=== PATIENT | female | born 1985 | race Caucasian/White ===

== ENCOUNTER 2021-02-13 09:31 | Outpatient (CLI) | payer BC, SELFPAY ==
--- NOTE | 2021-02-13 09:39 | US_ITS ---
WS: [id number] RENAL ULTRASOUND HISTORY: HEMATURIA COMPARISON: None available. TECHNIQUE: 2-D and color Doppler imaging of the kidney submitted. Right kidney: 13.0 cm x 4.9 cm x 4.9 cm. Normal echogenicity with no hydronephrosis or mass. Left kidney: 12.1 cm x 5.3 cm x 4.0 cm. Normal echogenicity with no hydronephrosis or mass. Aorta: Normal. Urinary Bladder: Normal distention. US/US renal BI* [id number] IMPRESSION: Normal renal ultrasound.
== END 2021-02-13 09:32 | disposition home or self-care (01) ==
LOC: US 09:35
PROVIDERS: PCP Nurse Practitioner Family; Visit Provider Nurse Practitioner Family
DX: R31.9 Hematuria, unspecified (principal); R30.0 Dysuria
CPT/HCPCS: 76770

== ENCOUNTER → 2021-02-24 09:03 | Outpatient (BNVA) | payer BC, SELFPAY | PROVIDERS: PCP Nurse Practitioner Family; Referring Provider Nurse Practitioner Family; Visit Provider Nurse Practitioner Family | DX: R31.0 Gross hematuria (principal) | CPT/HCPCS: 81003 ==

== ENCOUNTER 2021-03-04 08:12 | Outpatient (CLI) | payer BC, SELFPAY ==
[2021-03-04] MEDS: iohexol 300 mg/mL 100 mL Btl IV (08:57)
--- NOTE | 2021-03-04 09:30 | CT_ITS ---
WS: [id number] CT ABDOMEN AND PELVIS WITH AND WITHOUT CONTRAST HISTORY: GROSS HEMATURIA TECHNIQUE: Unenhanced 5 mm axial imaging first performed through the abdomen. Post contrast imaging t hrough the abdomen and pelvis. Oral contrast has not been provided. Sagittal and coronal reformats a re submitted. All CT scans at [facility] use at least one of these dose optimization tech niques: automated exposure control; mA and/or kV adjustment per patient size (includes targeted exams where dose is matched to clinical indication); or iterative reconstruction. CONTRAST: Omnipaque 300; 95 mL IV. DLP: 5031.16 mGy.cm COMPARISON: None available. Lung bases are clear. Normal size heart. Small hiatal hernia. Mild hepatic steatosis. Otherwise negative. No bile duct dilatation. Prior cholecystectomy. Normal sp emelyn and pancreas. Normal adrenal glands and aorta. RIGHT kidney: Normal size with no calcification or obstruction or mass. Ureter is normal. No uroepith elial lesions. LEFT kidney: Normal size with no calcifications, obstruction or mass. No uroepithelial lesions. Normal GI tract. Normal appendix. No free fluid or adenopathy. Uterus is normal size and anteverted. Small bilateral ovarian follicles. No destructive bone lesions. CT/CT abdomen pelvis wo/w [id number] IMPRESSION: 1. Normal CT kidneys. No mass or calcification or obstruction. 2. Normal appendix. 3. Prior cholecystectomy.
== END 2021-03-04 08:13 | disposition home or self-care (01) ==
LOC: CT 08:15
PROVIDERS: PCP Nurse Practitioner Family; Visit Provider Nurse Practitioner Family
DX: R31.0 Gross hematuria (principal); Z90.49 Acquired absence of other specified parts of digestive tract; R31.9 Hematuria, unspecified
CPT/HCPCS: 74178; 87086; 88112

== ENCOUNTER → 2021-03-13 10:19 | Outpatient (BNVA) | payer BC, SELFPAY | PROVIDERS: PCP Nurse Practitioner Family; Visit Provider Urology | DX: R31.0 Gross hematuria (principal) | CPT/HCPCS: 81003 ==

== ENCOUNTER → 2021-04-27 08:17 | Outpatient (BNVA) | payer BC, SELFPAY | PROVIDERS: PCP Nurse Practitioner Family; Visit Provider Obstetrics & Gynecology | DX: R93.89 Abnormal findings on diagnostic imaging of other specified body structures (principal); R10.814 Left lower quadrant abdominal tenderness; N91.2 Amenorrhea, unspecified | CPT/HCPCS: 76830 ==

== ENCOUNTER → 2021-05-08 11:40 | Outpatient (BNVA) | payer BC, SELFPAY | PROVIDERS: PCP Nurse Practitioner Family; Visit Provider Nurse Practitioner Family | DX: Z20.822 Contact with and (suspected) exposure to COVID-19 (principal); J06.9 Acute upper respiratory infection, unspecified | CPT/HCPCS: 87426 ==

== ENCOUNTER 2021-05-10 19:10 | Emergency (ER) | payer BC, SELFPAY ==
[2021-05-10 20:00] VITALS: BP 138/93; PULSE 85; RESP 18; TEMP 37.5; O2SAT 94; BMI 43.8
--- NOTE | 2021-05-10 20:03 | ECG_ITS ---
[facility] Test Date: 2021-05-10 Pat Name: Amalia Bates Department: Room: Gender: Female Family Resource Coordinator: : 1985 Requested By: Lonny Ledezma Order Number: [id number] Alan MD: THELMA HULL Measurements Intervals [place] Rate: 95 P: 0 [place]: 144 QRS: -13 QRSD: 86 T: 6 QT: 331 QTc: 417 Interpretive Statements SINUS RHYTHM POSSIBLE LEFT ATRIAL ENLARGEMENT [-0.1mV P WAVE IN V1/V2] No previous ECG available for comparison Electronically Signed On 05-11-2021 23:34:46 CDT by THELMA HULL [email or web address]/[id number] f
--- NOTE | 2021-05-10 20:03 | ED_ITS ---
HPI - COVID General: Chief Complaint: COVID symptoms Stated Complaint: CHEST PAINS COVID + Time Seen by Provider: 05/10/21 20:03 Triage information: Has fever, cough or shortness of breath . Exposure to COVID + person last 14 days History of Present Illness: HPI Narrative: 36-year-old female comes in today with complaints of palpitations and one syncopal episode. Patient reports this morning she became faint and passed out. Patient said since coming to though she has felt well most of the day and without any further problems. Patient reports that her mother's been having her drink more water and Pedialyte. Patient appears well at this time. Patient appears no acute distress. Patient tested positive for Covid 19 on May 08, 2021. COVID Results: SARS-CoV-2 Antigen (Rapid) Positive (Negative) H 05/08/21 11:40 05/08/21 Review of Systems General: Reports: 10 or more systems reviewed and unremarkable except in HPI and below Card: Reports: palpitations and syncope [facility] ED PFSH: Medical History No pertinent past medical history Denies diabetes, asthma, hypertension, seizures, DVT/PE PCP: KELLY Pearl PCOS (polycystic ovarian syndrome) Diagnosed at the age of 20 with irregular cycles and hirsutism. Surgical History History of cholecystectomy 2004---laparoscopic procedure. Status post laparoscopy 2009--diagnostic laparoscopy performed by Dr. Dyer for infertility-Per patient everything was normal--no endometriosis---she did say that there was scar tissue around gallbladder surgery site. Family History Father Hypertension Thyroid cancer Grandmother Stroke paternal Heart disease maternal Grandfather Heart disease maternal Diabetes paternal Family/Other Breast cancer paternal aunt x 3, diagnosed in their 50s paternal cousin, diagnosed in her 30s Diabetes paternal aunt, paternal uncle Uterine cancer paternal cousin, diagnosed at age 37 Denies family history of Colon cancer Ovarian cancer Hyperlipidemia Thyroid condition Social History Smoking and tobacco status: never smoked Alcohol intake: never Marital status: Current occupational status: employed History of recent travel: No Physical Exam Const: COMMON NORMALS: no acute distress and patient oriented x3 GENERAL APPEARANCE: cooperative HENMT: COMMON NORMALS: normocephalic, TM's normal bilaterally and Normal external nose present HEAD & SCALP: normal to inspection and normocephalic NOSE: Normal external nose present TYMPANIC MEMBRANE: TM's normal bilaterally MOUTH: Normal oral and palatal mucosa present THROAT: posterior oropharynx normal Eye: GENERAL EYE: appearance normal, both eyes and all related structures Neck/C-Spine: COMMON NORMALS: full ROM Lymph: LYMPHATIC: no lymphadenopathy noted Chest: COMMONS NORMALS: normal inspection of the chest Resp: COMMON NORMALS: normal respiratory effort EFFORT & INSPECTION: Yes able to speak in complete sentences Cardio: COMMON NORMALS: regular rate and regular rhythm RATE: regular rate RHYTHM: regular rhythm GI: COMMON NORMALS: non-tender : COMMON NORMALS: Yes no CVA tenderness BLADDER/KIDNEY EXAM: Yes no CVA tenderness Back/Pelvis: COMMON NORMALS: no CVA tenderness and thoracic and lumbar spine normal to inspection Extremity: COMMON NORMALS: normal to inspection Neuro: COMMON NORMALS: patient oriented x3 and moves all extremities Psych: COMMON NORMALS: mental status grossly normal and cooperative Skin: COMMON NORMALS: no rashes or lesions noted GENERAL SKIN EXAM: no rashes or lesions noted Course Vital Signs: Vital signs: Vital Signs Temperature 99.5 F 05/10/21 20:00 Pulse Rate 85 05/10/21 20:00 Respiratory Rate 18 05/10/21 20:00 Blood Pressure 138/93 05/10/21 20:00 Pulse Oximetry 97 05/10/21 21:02 MDM - COVID MDM Narrative: Medical decision making narrative: Patient came in tonight with complaints of heart palpitations and lightheadedness. Patient reported the episode this morning where she thinks she might of passed out as she felt palpitations and then got really lightheaded and sat down and the next thing she knows she woke back up with her father waking her up. On exam respirations are even lungs are clear to auscultation. Skin is warm and dry. Vital signs are normal. Differential diagnosis includes PVCs, syncopal episode, COVID-19. Patient does have a diagnosis of COVID-19. CBC noted some mild leukopenia, CMP had a sodium 134, CRP was 11, D-dimer was negative and troponin was negative. EKG showed some sinus rhythm. Reviewed exam with patient with recommendations for treatment and follow-up. Patient reported understanding and agreed to plan. Lab Data: Labs: Lab Results 05/10/21 05/10/21 05/10/21 Range/Units 21:10 21:10 21:10 WBC Cancelled Corrected WBC Cancelled RBC Cancelled Hgb Cancelled Hct Cancelled MCV Cancelled MCH Cancelled MCHC Cancelled RDW Cancelled Plt Count Cancelled MPV Cancelled Gran % Cancelled Neut % (Auto) Cancelled Lymph % (Auto) Cancelled Hawkins % (Auto) Cancelled Eos % (Auto) Cancelled Baso % (Auto) Cancelled Neut # (Auto) Cancelled Lymph # (Auto) Cancelled Hawkins # (Auto) Cancelled Eos # (Auto) Cancelled Baso # (Auto) Cancelled Absolute Gran (aut o) Cancelled Nucleated RBC % (a uto) Cancelled Nucleated RBCs # Cancelled D-Dimer 0.52 (0-0.59) ug/mIFE U Sodium 134 L (136-145) mmol/L Potassium 4.2 (3.5-5.1) mmol/L Chloride 100 (98-107) mmol/L Carbon Dioxide 20 L (22-29) mmol/L Anion Gap 18.2 (5-19) BUN 9 (6-20) mg/dL Creatinine 0.9 (0.5-0.9) mg/dL GFR Calculation 71.3 L (90-130) mL/min Glucose 104 (65-115) mg/dL Calculated Osmolal ity 277 L (285-295) mOsm/k g Calcium 8.4 L (8.5-10.5) mg/dL Total Bilirubin 0.3 (0.15-1.2) mg/dL AST 28 (0-32) U/L ALT 28 (0-33) U/L Alkaline Phosphata se 55 (35-105) IU/L Creatine Kinase 93 (26-192) U/L Troponin T Gen 5 n g/L (0-10) ng/L C-Reactive Protein 11.9 H (0.0-4.9) mg/L Total Protein 6.2 L (6.6-8.7) g/dL Albumin 3.9 (3.5-5.2) g/dL Globulin 2.3 (1.3-4.6) g/dL HCG, Qual (Negative) 05/10/21 05/10/21 05/10/21 Range/Units 21:10 21:10 21:47 WBC 3.7 L Corrected WBC RBC 5.01 Hgb 14.8 Hct 45.5 MCV 90.8 MCH 29.5 MCHC 32.5 RDW 13.1 Plt Count 137 MPV 10.7 H Gran % Neut % (Auto) 71.6 Lymph % (Auto) 17.7 Hawkins % (Auto) 10.4 Eos % (Auto) 0.0 Baso % (Auto) 0.0 Neut # (Auto) 2.63 Lymph # (Auto) 0.7 L Hawkins # (Auto) 0.4 Eos # (Auto) 0.0 Baso # (Auto) 0.0 Absolute Gran (aut o) Nucleated RBC % (a uto) 0 Nucleated RBCs # 0.0 D-Dimer (0-0.59) ug/mIFE U Sodium (136-145) mmol/L Potassium (3.5-5.1) mmol/L Chloride (98-107) mmol/L Carbon Dioxide (22-29) mmol/L Anion Gap (5-19) BUN (6-20) mg/dL Creatinine (0.5-0.9) mg/dL GFR Calculation (90-130) mL/min Glucose (65-115) mg/dL Calculated Osmolal ity (285-295) mOsm/k g Calcium (8.5-10.5) mg/dL Total Bilirubin (0.15-1.2) mg/dL AST (0-32) U/L ALT (0-33) U/L Alkaline Phosphata se (35-105) IU/L Creatine Kinase (26-192) U/L Troponin T Gen 5 n g/L 6 (0-10) ng/L C-Reactive Protein (0.0-4.9) mg/L Total Protein (6.6-8.7) g/dL Albumin (3.5-5.2) g/dL Globulin (1.3-4.6) g/dL HCG, Qual Negative (Negative) EKG Data: EKG 1: Attestation: I personally reviewed and interpreted this EKG as follows: (EKG shows regular sinus rhythm with rate of 95 bpm, no ST elevation or ectopy is noted. Computer reads possible left atrial enlargement. No prior exam is available at this time for comparison.) COVID Results: SARS-CoV-2 Antigen (Rapid) Positive (Negative) H 05/08/21 11:40 05/08/21 Discharge Plan Discharge Patient Disposition: Home Clinical Impression: COVID-19, Heart palpitations Condition: Stable Prescriptions: No Action No Known Home Medications RF: 0 Discharge Orders: Discharge ED (Routine); Ordered 05/10/21 Ordered By: Lonny Dean Referrals: Kelly Killian FNP [Primary Care Provider] - Discharge Diet: Usual diet Discharge Activity: Increase activity as tolerated Patient Instructions: Viral Syndrome (ED), Opioid Safety Activity Restrictions/Additional Instructions: Continue with routine care. Drink plenty of fluids. Healthy diet and exercise. Avoid strenuous activity. Take your time changing position. Follow-up with primary care for further instruction. Return to the ER for worsening symptoms or new concerns. Coding Level of Care Code ED Regasification Plant Operator for Jannet Kaplan Exam Comprehensive
--- NOTE | 2021-05-10 20:03 | XRR_ITS ---
PROCEDURE INFORMATION: Exam: XR Chest Exam date and time: 05/10/2021 8:03 PM Age: 36 years old Clinical indication: Sternal or substernal pain; Additional info: Chest pain TECHNIQUE: Imaging protocol: XR of the chest. Views: 1 view. COMPARISON: CT abdomen pelvis wo/w [id number] 03/04/2021 8:50 AM FINDINGS: Lungs: No consolidation. Pleural spaces: No pleural effusion. No pneumothorax. Heart/Mediastinum: No cardiomegaly. Bones/joints: Unremarkable. XR/XR chest 1V portable [id number] IMPRESSION: No acute abnormality demonstrated.
[2021-05-10 21:02] VITALS: BP 130/94; PULSE 87; RESP 20; O2SAT 94; O2SAT 97
[2021-05-10 21:38] LABS: HCG, Serum Qual Negative (Negative)
[2021-05-10 21:50] LABS: Troponin T (5th) Once 6 ng/L (0-10)
[2021-05-10 21:51] LABS: Alanine Aminotransferase 28 U/L (0-33); Albumin Level 3.9 g/dL (3.5-5.2); Alkaline Phosphatase 55 IU/L (35-105); Aspartate Amino Transferase 28 U/L (0-32); Blood Urea Nitrogen 9 mg/dL (6-20); C Reactive Protein 11.9 mg/L (0.0-4.9); Calcium 8.4 mg/dL (8.5-10.5); Carbon Dioxide 20 mmol/L (22-29); Chloride 100 mmol/L (98-107); Creatine Phosphokinase 93 U/L (26-192); Globulin 2.3 g/dL (1.3-4.6); Glomerular Filtration Rate 71.3 mL/min (90-130); Glucose 104 mg/dL (65-115); Osmolality Calculated 277 mOsm/kg (285-295); Sodium 134 mmol/L (136-145); Total Bilirubin 0.3 mg/dL (0.15-1.2); Total Protein 6.2 g/dL (6.6-8.7)
[2021-05-10 21:54] LABS: Anion Gap 18.2 (5-19); Potassium 4.2 mmol/L (3.5-5.1)
[2021-05-10 21:55] LABS: D Dimer 0.52 ug/mIFEU (0-0.59)
[2021-05-10 22:02] VITALS: BP 133/94; PULSE 82; RESP 18; O2SAT 94
[2021-05-10 22:03] LABS: Hematocrit 45.5 % (37.0-47.0); Hemoglobin 14.8 g/dL (11.5-15.3); Lymphocytes # 0.7 10^3/uL (0.8-4.8); Lymphocytes % 17.7 %; Mean Corpuscular HGB Conc 32.5 g/dL (30.0-36.0); Mean Corpuscular Hemoglobin 29.5 pg (28.0-34.0); Mean Corpuscular Volume 90.8 fL (81-99); Mean Platelet Volume 10.7 fL (7.4-10.4); Monocytes # 0.4 10^3/uL (0.2-0.9); Monocytes % 10.4 %; Neutrophils # 2.63 10^3/uL (1.8-7.7); Neutrophils % 71.6 %; Nucleated Red Blood Cells % 0 %; Platelet Count 137 10^3/cmm (130-400); Red Blood Count 5.01 10^6/uL (4.1-5.3); Red Cell Distribution Width 13.1 % (12.1-15.1); White Blood Count 3.7 10^3/uL (4.0-10.0)
[2021-05-10 23:32] VITALS: BP 138/93; PULSE 85; RESP 18; O2SAT 94
== END 2021-05-10 23:15 | disposition home or self-care (01) ==
PROVIDERS: Emergency Provider Nurse Practitioner Family; PCP Nurse Practitioner Family
DX: U07.1 COVID-19 (principal); R00.2 Palpitations
CPT/HCPCS: 36415; 71045; 80053; 82550; 84484; 84703; 85025; 85378; 86140; 93005; 99283

== ENCOUNTER 2021-05-13 22:41 | Emergency (ER) | payer BC, SELFPAY ==
--- NOTE | 2021-05-13 22:47 | XRR_ITS ---
PROCEDURE INFORMATION: Exam: XR Chest Exam date and time: 05/13/2021 10:47 PM Age: 36 years old Clinical indication: Shortness of breath; Prior surgery; Surgery type: Gb; Patient HX: Sob/hypoxia. Covid + TECHNIQUE: Imaging protocol: XR of the chest. Views: 1 view. COMPARISON: CR (CHEST, ) 05/10/2021 8:20 PM FINDINGS: Lungs: Mild bilateral interstitial opacities, compatible with viral infection. Pleural spaces: Unremarkable. No pleural effusion. No pneumothorax. Heart/Mediastinum: Unremarkable. No cardiomegaly. Bones/joints: No acute fracture. XR/XR chest 1V portable [id number] IMPRESSION: Mild bilateral interstitial opacities, compatible with viral infection.
[2021-05-13 22:51] VITALS: BP 113/76; PULSE 101; RESP 20; TEMP 37.8; O2SAT 84; BMI 43.8
[2021-05-13 22:54] VITALS: O2SAT 84
--- NOTE | 2021-05-13 23:07 | ED_ITS ---
HPI - COVID General: Chief Complaint: COVID symptoms Stated Complaint: sob, covid positive Time Seen by Provider: 05/13/21 22:48 Source: patient Mode of arrival: ambulatory Limitations: no limitations Triage information: Has fever, cough or shortness of breath . Exposure to COVID + person last 14 days History of Present Illness: HPI Narrative: Patient is a nice 36-year-old female who presents to ED today with complaints of low O2 saturations. She is on day 7 of COVID symptoms. She had a positive COVID test on 05/08. Patient was seen in our facility a few days ago for complaints of heart palpitations. She was subsequently discharged home. Patient tells me she did begin feeling better up until today when she began feeling short of breath. Home pulse ox read patient saturating at anywhere from 85 to 88% on room air. complaint: known COVID positive Prior covid testing: yes, results known Prior testing date: 05/08/21 COVID 19 common symptoms: positive dyspnea, fatigue and body aches; negative fever(s) (pt had low grade fever upon arrival), chills, non-productive cough, productive cough, headache(s), nausea, vomiting or diarrhea COVID 19 other sytmptoms: negative chest pain Onset (ago): hour(s) Severity: moderate COVID Results: SARS-CoV-2 Antigen (Rapid) Positive (Negative) H 05/08/21 11:40 05/08/21 Review of Systems Const: Reports: body aches and fatigue; Denies: fever(s) (pt had low grade fever upon arrival), chills or malaise Card: Reports: dyspnea on exertion; Denies: chest pain, palpitations, irregular heart rhythm, edema, swelling of feet/ankles, lightheadedness, syncope, pre-syncope, orthopnea, leg pain with exertion or acrocyanosis Resp: Reports: dyspnea; Denies: productive cough, non-productive cough, wheezing, hemoptysis or chest congestion GI: Denies: abdominal pain, nausea, vomiting or diarrhea Musc: Denies: neck pain or back pain Skin/Breast: Denies: rash Neuro: Denies: headache(s), numbness in extremities, weakness in extremities, sensory changes or dizziness PFS ED PFSH: Medical History No pertinent past medical history Denies diabetes, asthma, hypertension, seizures, DVT/PE PCP: KELLY Pearl PCOS (polycystic ovarian syndrome) Diagnosed at the age of 20 with irregular cycles and hirsutism. Surgical History History of cholecystectomy 2004---laparoscopic procedure. Status post laparoscopy 2009--diagnostic laparoscopy performed by Dr. Dyer for infertility-Per patient everything was normal--no endometriosis---she did say that there was scar tissue around gallbladder surgery site. Family History Father Hypertension Thyroid cancer Grandmother Stroke paternal Heart disease maternal Grandfather Heart disease maternal Diabetes paternal Family/Other Breast cancer paternal aunt x 3, diagnosed in their 50s paternal cousin, diagnosed in her 30s Diabetes paternal aunt, paternal uncle Uterine cancer paternal cousin, diagnosed at age 37 Denies family history of Colon cancer Ovarian cancer Hyperlipidemia Thyroid condition Social History Smoking and tobacco status: never smoked Alcohol intake: never Marital status: Current occupational status: employed History of recent travel: No Physical Exam Const: COMMON NORMALS: no acute distress, patient oriented x3, no limitations and alert GENERAL APPEARANCE: cooperative NUTRITIONAL APPEARANCE: obese ORIENTATION/CONSCIOUSNESS: Yes awake, Yes oriented to person, Yes oriented to place and Yes oriented to time HENMT: COMMON NORMALS: normocephalic and atraumatic HEAD & SCALP: normocephalic and atraumatic Resp: COMMON NORMALS: normal respiratory effort and clear to auscultation bilaterally AUSCULTATION: clear to auscultation bilaterally Cardio: COMMON NORMALS: regular rate and regular rhythm RATE: regular rate RHYTHM: regular rhythm Extremity: COMMON NORMALS: normal to inspection Neuro: TALIB COMA SCALE: document GCS findings Union coma scale eye opening: Spontaneous Talib coma scale verbal response: Orientated Union coma scale motor response: Obey commands Talib coma scale total score: 15 COMMON NORMALS: patient oriented x3 SENSORIUM/ORIENTATION: Yes alert, Yes oriented to person, Yes oriented to place and Yes oriented to time Skin: COMMON NORMALS: no rashes or lesions noted GENERAL SKIN EXAM: no rashes or lesions noted Course Vital Signs: Vital signs: Vital Signs Temperature 100.1 F H 05/13/21 22:51 Pulse Rate 84 05/14/21 02:05 Respiratory Rate 22 H 05/14/21 02:05 Blood Pressure 106/80 05/14/21 02:05 Pulse Oximetry 98 05/14/21 02:05 MDM - COVID MDM Narrative: Medical decision making narrative: Patient was hypoxic on room air however she quickly jumped up to 96% on 3L. She has no labored breathing and clinically appears well. Low-grade fever upon arrival subsided after PO Tylenol. She will be sent home with O2 and dexamethasone. Return to ED precautions given. Lab Data: Labs: Lab Results 05/14/21 05/14/21 Range/Units 00:30 00:30 WBC 4.4 (4.0-10.0) 10^3/ uL RBC 4.75 (4.1-5.3) 10^6/u L Hgb 14.0 (11.5-15.3) g/dL Hct 42.2 (37.0-47.0) % MCV 88.8 (81-99) fL MCH 29.5 (28.0-34.0) pg MCHC 33.2 (30.0-36.0) g/dL RDW 13.4 (12.1-15.1) % Plt Count 105 L (130-400) 10^3/c mm MPV 10.7 H (7.4-10.4) fL Neut % (Auto) 70.7 % Lymph % (Auto) 21.8 % [place] % (Auto) 6.8 % Eos % (Auto) 0.0 % Baso % (Auto) 0.2 % Neut # (Auto) 3.11 (1.8-7.7) 10^3/u L Lymph # (Auto) 1.0 (0.8-4.8) 10^3/u L [place] # (Auto) 0.3 (0.2-0.9) 10^3/u L Eos # (Auto) 0.0 (0.0-0.8) 10^3/u L Baso # (Auto) 0.0 (0.0-0.1) 10^3/u L Nucleated RBC % (a uto) 0 % Nucleated RBCs # 0.0 /100WBC Sodium 134 L (136-145) mmol/L Potassium 3.9 (3.5-5.1) mmol/L Chloride 98 (98-107) mmol/L Carbon Dioxide 24 (22-29) mmol/L Anion Gap 15.9 (5-19) BUN 6 (6-20) mg/dL Creatinine 0.5 (0.5-0.9) mg/dL GFR Calculation 140.4 H (90-130) mL/min Glucose 107 (65-115) mg/dL Calculated Osmolal ity 276 L (285-295) mOsm/k g Calcium 8.0 L (8.5-10.5) mg/dL Total Bilirubin 0.8 (0.15-1.2) mg/dL AST 97 H (0-32) U/L ALT 87 H (0-33) U/L Alkaline Phosphata se 52 (35-105) IU/L C-Reactive Protein 11.4 H (0.0-4.9) mg/L Total Protein 6.3 L (6.6-8.7) g/dL Albumin 3.8 (3.5-5.2) g/dL Globulin 2.5 (1.3-4.6) g/dL Imaging Data: CXR: Radiologist's impression: [address] [id number] ReportSigned Patient: Stephanie Bates #: [id number]: 1985Acct#:[id number]/Sex: 36 / FADM Date: 05/13/21Loc: ERRoo/Bed:Attending Dr: Ordering Provider/Ordering MD: Fabricio Griffin MD Date of Service: 05/13/21 Procedure(s): XR chest 1V portable [id number] Accession Number(s): [id number] Report Number: [id number] PROCEDURE INFORMATION: Exam: XR Chest Exam date and time: 05/13/2021 10:47 PM Age: 36 years old Clinical indication: Shortness of breath; Prior surgery; Surgery type: Gb; Patient HX: Sob/hypoxia. Covid + TECHNIQUE: Imaging protocol: XR of the chest. Views: 1 view. COMPARISON: CR (CHEST, ) 05/10/2021 8:20 PM FINDINGS: Lungs: Mild bilateral interstitial opacities, compatible with viral infection. Pleural spaces: Unremarkable. No pleural effusion. No pneumothorax. Heart/Mediastinum: Unremarkable. No cardiomegaly. Bones/joints: No acute fracture. XR/XR chest 1V portable [id number] IMPRESSION: Mild bilateral interstitial opacities, compatible with viral infection. Dictated By:Dejuan Chau MDSigned By:Dejuan Chau MDSigned Date/Time:05/14/21 0142DD/ 0141 COVID Results: SARS-CoV-2 Antigen (Rapid) Positive (Negative) H 05/08/21 11:40 05/08/21 Discharge Plan Discharge Patient Disposition: Home Clinical Impression: COVID-19 Condition: Stable Prescriptions: New dexamethasone 6 mg tablet 6 mg PO DAILY Qty: 6 RF: 0 Discharge Orders: Discharge ED (Routine); Ordered 05/14/21 Ordered By: Tammi Jones Other Ambulatory Orders: DME: Oxygen (Order) Location: None Selected Ordered By: Tammi Jones Referrals: Kelly Killian FNP [Primary Care Provider] - Activity Restrictions/Additional Instructions: You may return to the emergency department for worsening shortness of breath or difficulty breathing, severe chest pain/palpitations, uncontrollable fevers, or any other concerns you may have. I hope you begin to feel better soon. Coding Level of Care Code ED Inspector Insulation for Jannet Fwalejandra Exam Detailed
[2021-05-14] MEDS: acetaminophen 500 mg Tablet 1000 MG PO (00:25)
[2021-05-14 00:56] LABS: Basophils % 0.2 %; Hematocrit 42.2 % (37.0-47.0); Lymphocytes % 21.8 %; Mean Corpuscular HGB Conc 33.2 g/dL (30.0-36.0); Mean Corpuscular Hemoglobin 29.5 pg (28.0-34.0); Mean Corpuscular Volume 88.8 fL (81-99); Mean Platelet Volume 10.7 fL (7.4-10.4); Monocytes # 0.3 10^3/uL (0.2-0.9); Monocytes % 6.8 %; Neutrophils # 3.11 10^3/uL (1.8-7.7); Neutrophils % 70.7 %; Nucleated Red Blood Cells % 0 %; Platelet Count 105 10^3/cmm (130-400); Red Blood Count 4.75 10^6/uL (4.1-5.3); Red Cell Distribution Width 13.4 % (12.1-15.1); White Blood Count 4.4 10^3/uL (4.0-10.0)
[2021-05-14 01:06] LABS: Alanine Aminotransferase 87 U/L (0-33); Albumin Level 3.8 g/dL (3.5-5.2); Alkaline Phosphatase 52 IU/L (35-105); Anion Gap 15.9 (5-19); Aspartate Amino Transferase 97 U/L (0-32); Blood Urea Nitrogen 6 mg/dL (6-20); C Reactive Protein 11.4 mg/L (0.0-4.9); Carbon Dioxide 24 mmol/L (22-29); Chloride 98 mmol/L (98-107); Globulin 2.5 g/dL (1.3-4.6); Glomerular Filtration Rate 140.4 mL/min (90-130); Glucose 107 mg/dL (65-115); Osmolality Calculated 276 mOsm/kg (285-295); Potassium 3.9 mmol/L (3.5-5.1); Sodium 134 mmol/L (136-145); Total Bilirubin 0.8 mg/dL (0.15-1.2); Total Protein 6.3 g/dL (6.6-8.7)
[2021-05-14 01:24] VITALS: BP 106/80; PULSE 84; RESP 22; O2SAT 22
[2021-05-14 02:05] VITALS: BP 106/80; PULSE 84; RESP 22; O2SAT 98
--- NOTE | 2021-05-14 10:56 | DCPLANNER ---
inside sales manager had message to schedule a follow up appointment for patient for a telehealth visit for COVID. inside sales manager called and spoke with patient, she stated that she sees Kelly Killian at [facility]. inside sales manager called [facility], spoke with Bri, gave clinic patients information. inside sales manager was told that clinic would call patient and speak with patient.
== END 2021-05-14 02:00 | disposition home or self-care (01) ==
PROVIDERS: Emergency Provider Physician Assistant; PCP Nurse Practitioner Family
DX: U07.1 COVID-19 (principal)
CPT/HCPCS: 71045; 80053; 85025; 86140; 99283

== ENCOUNTER 2021-05-17 14:27 | Inpatient (IN) | payer BC, SELFPAY ==
[2021-05-17] VITALS (14 sets, daily range): BP systolic 100–125; BP diastolic 59–91; PULSE 77–96; RESP 20–30; TEMP 36.6–36.8; O2SAT 87–96; BMI 37.5
--- NOTE | 2021-05-17 14:50 | XRR_ITS ---
PROCEDURE INFORMATION: Exam: XR Chest Exam date and time: 05/17/2021 2:50 PM Age: 36 years old Clinical indication: Shortness of breath; Additional info: SOB TECHNIQUE: Imaging protocol: XR of the chest. Views: 1 view. COMPARISON: CR XR chest 1V portable [id number] 05/13/2021 10:52 PM FINDINGS: Lungs: Lungs are hypoinflated. Patulous opacities throughout both lungs. Pleural spaces: Unremarkable. No pleural effusion. No pneumothorax. Heart/Mediastinum: Unremarkable. No cardiomegaly. Bones/joints: Unremarkable. XR/XR chest 1V portable [id number] IMPRESSION: Patulous opacities throughout both lungs, more conspicuous than prior study.
[2021-05-17 15:08] LABS: ABG PCO2 33.7 mmHg (35-45); ABG PH Result 7.48 (7.35-7.45); Arterial Blood Gas Hematocrit 45.5 % (37-47); Base Excess ABG 2.3 mmol/L (-2.0-2.0); Blood Gas Operator Identificat AMH; Blood Gas Sample Site Brachial, right; Blood Gas Sample Type Arterial; HCO3 ABG 25.3 mmol/L (22-26); Oxygen Device NC; PO2 ABG 57.3 mmHg (80.0-100.0)
--- NOTE | 2021-05-17 15:12 | W.ED.GENADLT ---
HPI - General Adult General: Chief complaint: ER Hold Stated complaint: SOB; COVID + Time Seen by Provider: 05/17/21 14:35 History of Present Illness: HPI narrative: CC: Shortness of breath, fever and generalized weakness HPI: This is a 36 yo patient w/ no significant PMH presenting to the ED for moderate respiratory distress at home now worsenign x 9 days. Symptoms x 9 days and patient was diagnosed with +covid now progressively worsening symptoms. Denies chest pain, N/V, diaphoresis, exertional shortness of breath, GI or other complaints. Denies any pleuritic chest pain, recent surgery/immobilization/travel, or hematemesis or hx of VTE in the past. Onset: 9 days ago Duration: ongoing for the last 9 days Location: home Severity: moderate/severe Review of Systems Narrative: Constitutional: +subjective fever, +generalized weakness HEENT: No vision changes CV: No chest pain, no palpitations PULM: +cough, +dyspnea. GI: No abdominal pain, no N/V/D. : No dysuria MSKEL: No muscle pain SKIN: No new rashes, no lesions. NEURO: No headache, no focal weakness. HEME: No visible bruises PSYCH: Normal mood PFSH ED PFSH: Medical History No pertinent past medical history Denies diabetes, asthma, hypertension, seizures, DVT/PE PCP: KELLY Pearl PCOS (polycystic ovarian syndrome) Diagnosed at the age of 20 with irregular cycles and hirsutism. Surgical History History of cholecystectomy 2004---laparoscopic procedure. Status post laparoscopy 2009--diagnostic laparoscopy performed by Dr. Dyer for infertility-Per patient everything was normal--no endometriosis---she did say that there was scar tissue around gallbladder surgery site. Family History Father Hypertension Thyroid cancer Grandmother Stroke paternal Heart disease maternal Grandfather Heart disease maternal Diabetes paternal Family/Other Breast cancer paternal aunt x 3, diagnosed in their 50s paternal cousin, diagnosed in her 30s Diabetes paternal aunt, paternal uncle Uterine cancer paternal cousin, diagnosed at age 37 Denies family history of Colon cancer Ovarian cancer Hyperlipidemia Thyroid condition Social History Smoking and tobacco status: never smoked Alcohol intake: never Marital status: Current occupational status: employed History of recent travel: No Physical Exam Narrative: EXAM NARRATIVE: Head: Atraumatic Eyes: PERRL, conjunctiva without injection ENT: Dry membrane moist NECK: Supple without lymphadenopathy LUNGS: +Coarse lung sounds, +crackles throughout the lung mcpherson, no increased work of breathing, +able to speak full sentences CV: RRR ABDOMEN: Soft, nontender in all quadrants, no guarding or rebound tenderness EXTREMITY: Normal ROM SKIN: No rash or erythema NEURO: Awake and alert. No focal motor deficits. PSYCH: Normal mood and affect. Course Vital Signs: Vital signs: Vital Signs Temperature 98.3 F 05/17/21 14:30 Pulse Rate 80 05/17/21 16:59 Respiratory Rate 20 H 05/17/21 16:59 Blood Pressure 116/64 05/17/21 16:15 Pulse Oximetry 95 05/17/21 16:59 MDM - General Adult MDM Narrative: Medical decision making narrative: 36yo patient w/ no significant PMH COVD+ BIBA for respiratory distress. On arrival patient is satting at 88% on 15L NRB with tachypnea coarse breath sounds in lung mcpherson and inability to complete full sentence. Based on history, exam and findings, presentation most consistent with moderate/severe covid PNA requiring increasing oxygen support. Low suspicion for PNA, ACS, tamponade, CHF, aortic dissection. EKG: No signs of STEMI and no evidence of Brugada?s sign, delta wave, epsilon wave, significantly prolonged QTc, or malignant arrhythmia as source of exacerbation. Workup today: ECG, CBC, BMP, Troponin, BNP, CXR, covid antigen and PCR, COVID labs, ABG, lactic acid, blood culture Intervention: Tylenol 1gram, PO challenge, serial reassessment, oxygen therapy, remdesivir, decadron On reassessment, the patient continues to be in moderate respiratory distress requiring high flow. Patient is on 30L at 62% FiO2. HDS, AAOx3 and mentating without issues. The patient is now more comfortable on BIPAP compared to prior without any signs of increasing fatigue. At this point, a decision was made to admit patient to the stepdown for close observation. Patient agrees with plan. Disposition: step down for observation Lab Data: Labs: Lab Results 05/17/21 05/17/21 05/17/21 Range/Units 14:50 14:50 14:50 WBC 6.5 (4.0-10.0) 10^3/ uL RBC 5.15 (4.1-5.3) 10^6/u L Hgb 14.8 (11.5-15.3) g/dL Hct 46.7 (37.0-47.0) % MCV 90.7 (81-99) fL MCH 28.7 (28.0-34.0) pg MCHC 31.7 (30.0-36.0) g/dL RDW 13.4 (12.1-15.1) % Plt Count 207 (130-400) 10^3/c mm MPV 10.3 (7.4-10.4) fL Neut % (Auto) 80.5 % Lymph % (Auto) 11.5 % Morrill % (Auto) 7.2 % Eos % (Auto) 0.0 % Baso % (Auto) 0.2 % Neut # (Auto) 5.25 (1.8-7.7) 10^3/u L Lymph # (Auto) 0.8 (0.8-4.8) 10^3/u L Morrill # (Auto) 0.5 (0.2-0.9) 10^3/u L Eos # (Auto) 0.0 (0.0-0.8) 10^3/u L Baso # (Auto) 0.0 (0.0-0.1) 10^3/u L Nucleated RBC % (a uto) 0 % Nucleated RBCs # 0.0 /100WBC ESR 39 H (0-15) mm/hr Specimen Type Sample Site ABG pH (7.35-7.45) ABG pCO2 (35-45) mmHg ABG pO2 (80.0-100.0) mmH g ABG HCO3 (22-26) mmol/L ABG Base Excess (-2.0-2.0) mmol/ L Daniel Test Hematocrit (37-47) % O2 Delivery Device O2 Liters/Min % Gear Tooth Grinding Machine Operator ID Sodium 141 (136-145) mmol/L Potassium 4.0 (3.5-5.1) mmol/L Chloride 103 (98-107) mmol/L Carbon Dioxide 23 (22-29) mmol/L Anion Gap 19.0 (5-19) BUN 12 (6-20) mg/dL Creatinine 0.5 (0.5-0.9) mg/dL GFR Calculation 140.4 H (90-130) mL/min Glucose 148 H (65-115) mg/dL Calculated Osmolal ity 295 (285-295) mOsm/k g Lactic Acid (0.5-2.2) mmol/L Calcium 8.0 L (8.5-10.5) mg/dL Ferritin (15-150) ng/mL Total Bilirubin 0.9 (0.15-1.2) mg/dL AST 98 H (0-32) U/L ALT 178 H (0-33) U/L Alkaline Phosphata se 68 (35-105) IU/L Lactate Dehydrogen ase 470 H (135-214) U/L Troponin T Gen 5 n g/L (0-10) ng/L C-Reactive Protein 15.0 H (0.0-4.9) mg/L NT-Pro-B Natriuret Pep 36 (0-125) pg/mL Total Protein 6.0 L (6.6-8.7) g/dL Albumin 3.9 (3.5-5.2) g/dL Globulin 2.1 (1.3-4.6) g/dL Procalcitonin 0.07 (0-0.5) ng/mL SARS-CoV-2 Ag (Rap id) (Negative) 05/17/21 05/17/21 05/17/21 Range/Units 14:50 14:50 14:50 WBC (4.0-10.0) 10^3/ uL RBC (4.1-5.3) 10^6/u L Hgb (11.5-15.3) g/dL Hct (37.0-47.0) % MCV (81-99) fL MCH (28.0-34.0) pg MCHC (30.0-36.0) g/dL RDW (12.1-15.1) % Plt Count (130-400) 10^3/c mm MPV (7.4-10.4) fL Neut % (Auto) % Lymph % (Auto) % Morrill % (Auto) % Eos % (Auto) % Baso % (Auto) % Neut # (Auto) (1.8-7.7) 10^3/u L Lymph # (Auto) (0.8-4.8) 10^3/u L Morrill # (Auto) (0.2-0.9) 10^3/u L Eos # (Auto) (0.0-0.8) 10^3/u L Baso # (Auto) (0.0-0.1) 10^3/u L Nucleated RBC % (a uto) % Nucleated RBCs # /100WBC ESR (0-15) mm/hr Specimen Type Sample Site ABG pH (7.35-7.45) ABG pCO2 (35-45) mmHg ABG pO2 (80.0-100.0) mmH g ABG HCO3 (22-26) mmol/L ABG Base Excess (-2.0-2.0) mmol/ L Daniel Test Hematocrit (37-47) % O2 Delivery Device O2 Liters/Min % Gear Tooth Grinding Machine Operator ID Sodium (136-145) mmol/L Potassium (3.5-5.1) mmol/L Chloride (98-107) mmol/L Carbon Dioxide (22-29) mmol/L Anion Gap (5-19) BUN (6-20) mg/dL Creatinine (0.5-0.9) mg/dL GFR Calculation (90-130) mL/min Glucose (65-115) mg/dL Calculated Osmolal ity (285-295) mOsm/k g Lactic Acid 1.8 (0.5-2.2) mmol/L Calcium (8.5-10.5) mg/dL Ferritin (15-150) ng/mL Total Bilirubin (0.15-1.2) mg/dL AST (0-32) U/L ALT (0-33) U/L Alkaline Phosphata se (35-105) IU/L Lactate Dehydrogen ase (135-214) U/L Troponin T Gen 5 n g/L 6 (0-10) ng/L C-Reactive Protein 14.8 H (0.0-4.9) mg/L NT-Pro-B Natriuret Pep (0-125) pg/mL Total Protein (6.6-8.7) g/dL Albumin (3.5-5.2) g/dL Globulin (1.3-4.6) g/dL Procalcitonin (0-0.5) ng/mL SARS-CoV-2 Ag (Rap id) (Negative) 05/17/21 05/17/21 05/17/21 Range/Units 14:50 14:50 14:57 WBC (4.0-10.0) 10^3/ uL RBC (4.1-5.3) 10^6/u L Hgb (11.5-15.3) g/dL Hct (37.0-47.0) % MCV (81-99) fL MCH (28.0-34.0) pg MCHC (30.0-36.0) g/dL RDW (12.1-15.1) % Plt Count (130-400) 10^3/c mm MPV (7.4-10.4) fL Neut % (Auto) % Lymph % (Auto) % Morrill % (Auto) % Eos % (Auto) % Baso % (Auto) % Neut # (Auto) (1.8-7.7) 10^3/u L Lymph # (Auto) (0.8-4.8) 10^3/u L Morrill # (Auto) (0.2-0.9) 10^3/u L Eos # (Auto) (0.0-0.8) 10^3/u L Baso # (Auto) (0.0-0.1) 10^3/u L Nucleated RBC % (a uto) % Nucleated RBCs # /100WBC ESR (0-15) mm/hr Specimen Type Arterial Sample Site Brachial, right ABG pH 7.48 H (7.35-7.45) ABG pCO2 33.7 L (35-45) mmHg ABG pO2 57.3 L (80.0-100.0) mmH g ABG HCO3 25.3 (22-26) mmol/L ABG Base Excess 2.3 H (-2.0-2.0) mmol/ L Daniel Test N/a Hematocrit 45.5 (37-47) % O2 Delivery Device Nc O2 Liters/Min 7.0 % Gear Tooth Grinding Machine Operator ID Amh Sodium (136-145) mmol/L Potassium (3.5-5.1) mmol/L Chloride (98-107) mmol/L Carbon Dioxide (22-29) mmol/L Anion Gap (5-19) BUN (6-20) mg/dL Creatinine (0.5-0.9) mg/dL GFR Calculation (90-130) mL/min Glucose (65-115) mg/dL Calculated Osmolal ity (285-295) mOsm/k g Lactic Acid (0.5-2.2) mmol/L Calcium (8.5-10.5) mg/dL Ferritin 1356 H (15-150) ng/mL Total Bilirubin (0.15-1.2) mg/dL AST (0-32) U/L ALT (0-33) U/L Alkaline Phosphata se (35-105) IU/L Lactate Dehydrogen ase (135-214) U/L Troponin T Gen 5 n g/L (0-10) ng/L C-Reactive Protein (0.0-4.9) mg/L NT-Pro-B Natriuret Pep (0-125) pg/mL Total Protein (6.6-8.7) g/dL Albumin (3.5-5.2) g/dL Globulin (1.3-4.6) g/dL Procalcitonin (0-0.5) ng/mL SARS-CoV-2 Ag (Rap id) Positive H (Negative) Imaging Data^: Other Imaging: Radiologist's impression: [address] [id number] ReportSigned Patient: Stephanie Bates #: [id number]: 1985Acct#:[id number]/Sex: 36 / FADM Date: 05/17/21Loc: ERRoom/Bed:Attending Dr: Ordering Provider/Ordering MD: Driss Arce MD Date of Service: 05/17/21 Procedure(s): XR chest 1V portable [id number] Accession Number(s): [id number] Report Number: [id number] PROCEDURE INFORMATION: Exam: XR Chest Exam date and time: 05/17/2021 2:50 PM Age: 36 years old Clinical indication: Shortness of breath; Additional info: SOB TECHNIQUE: Imaging protocol: XR of the chest. Views: 1 view. COMPARISON: CR XR chest 1V portable [id number] 05/13/2021 10:52 PM FINDINGS: Lungs: Lungs are hypoinflated. Patulous opacities throughout both lungs. Pleural spaces: Unremarkable. No pleural effusion. No pneumothorax. Heart/Mediastinum: Unremarkable. No cardiomegaly. Bones/joints: Unremarkable. XR/XR chest 1V portable [id number] IMPRESSION: Patulous opacities throughout both lungs, more conspicuous than prior study. Dictated By:Stewart Null DOSigned By:Stewart Null DOSigned Date/Time:05/17/21 1528DD/ 1527 Discharge Plan Discharge Patient Disposition: Admitted As Inpatient Admit Provider: Luis Campbell Clinical Impression: Acute respiratory failure with hypoxemia, COVID-19 Condition: Stable Coding Level of Care Code ED Brokerage Coordinator for Jannet Kaplan
[2021-05-17] MEDS: dexamethasone 4 mg/mL INJ 6 MG INJECTION (15:21)
[2021-05-17] MEDS: lactated ringers 1,000 ML 150 ML IV ×2 (15:27→22:20)
[2021-05-17 15:29] LABS: Basophils % 0.2 %; Hematocrit 46.7 % (37.0-47.0); Hemoglobin 14.8 g/dL (11.5-15.3); Lymphocytes # 0.8 10^3/uL (0.8-4.8); Lymphocytes % 11.5 %; Mean Corpuscular HGB Conc 31.7 g/dL (30.0-36.0); Mean Corpuscular Hemoglobin 28.7 pg (28.0-34.0); Mean Corpuscular Volume 90.7 fL (81-99); Mean Platelet Volume 10.3 fL (7.4-10.4); Monocytes # 0.5 10^3/uL (0.2-0.9); Monocytes % 7.2 %; Neutrophils # 5.25 10^3/uL (1.8-7.7); Neutrophils % 80.5 %; Nucleated Red Blood Cells % 0 %; Platelet Count 207 10^3/cmm (130-400); Red Blood Count 5.15 10^6/uL (4.1-5.3); Red Cell Distribution Width 13.4 % (12.1-15.1); White Blood Count 6.5 10^3/uL (4.0-10.0)
[2021-05-17 15:57] LABS: C Reactive Protein 14.8 mg/L (0.0-4.9); Lactic Sepsis W/Reflex 1.8 mmol/L (0.5-2.2)
[2021-05-17 15:58] LABS: Troponin T (5th) Once 6 ng/L (0-10)
[2021-05-17 16:09] LABS: NT Pro B Type Natriuretic Pept 36 pg/mL (0-125); Procalcitonin 0.07 ng/mL (0-0.5); SARS Covid-2 Antigen Positive (Negative)
[2021-05-17 16:10] LABS: Erythrocyte Sedimentation Rate 39 mm/hr (0-15)
[2021-05-17] MEDS: remdesivir 200 MG in sodium chloride 0.9% (100 ml) 100 ML 100 MG IV (16:10)
[2021-05-17 16:20] LABS: Alanine Aminotransferase 178 U/L (0-33); Albumin Level 3.9 g/dL (3.5-5.2); Alkaline Phosphatase 68 IU/L (35-105); Aspartate Amino Transferase 98 U/L (0-32); Blood Urea Nitrogen 12 mg/dL (6-20); Carbon Dioxide 23 mmol/L (22-29); Chloride 103 mmol/L (98-107); Globulin 2.1 g/dL (1.3-4.6); Glomerular Filtration Rate 140.4 mL/min (90-130); Glucose 148 mg/dL (65-115); Lactate Dehydrogenase 470 U/L (135-214); Osmolality Calculated 295 mOsm/kg (285-295); Sodium 141 mmol/L (136-145); Total Bilirubin 0.9 mg/dL (0.15-1.2)
[2021-05-17 16:55] LABS: Ferritin 1356 ng/mL (15-150)
--- NOTE | 2021-05-17 18:47 | PM.HP ---
Providers/Chief Complaint Admitting Physician: Luis Campbell MD Primary Care Provider: KELLY Flores Chief Complaint: SOB; COVID + History of Present Illness Amalia Bates is a 36 year old female with no significant past medical history came in with chief complaint of worsening shortness of breath, predominantly with minimal exertion, she was diagnosed with Covid last Tuesday, and was initially sent home on 2 L home oxygen from the ER, but since discharge her shortness of breath has worsened, she is also complaining of chills since the diagnosis. Upon arrival in the ER she was worked up for above mentioned complaint: Imaging studies: X-ray chest: Worsening bilateral lung field infiltrates, no pneumothorax, no pleural effusion. CTA chest pending: Review of Systems Const: Denies: change in appetite or diaphoresis Card: Denies: palpitations, edema, swelling of feet/ankles, dyspnea on exertion, orthopnea or leg pain with exertion Resp: Denies: wheezing or pain on inspiration GI: Denies: abdominal pain, nausea, vomiting or constipation : Denies: flank pain Musc: Denies: back pain, extremity pain or extremity swelling Neuro: Denies: headache(s) or difficulty walking Medications/Allergies Home Medications Medication Instructions Recorded Confirmed Last Taken Type dexamethasone 6 mg PO DAILY #6 tab 05/14/21 05/17/21 05/17/21 Rx doxycycline monohydrate 100 mg PO BID 05/17/21 05/17/21 05/17/21 History famotidine 20 mg PO BID 05/17/21 05/17/21 05/17/21 History guaifenesin [Mucus Relief ER] 600 mg PO BID 05/17/21 05/17/21 05/17/21 History Allergies Allergy/AdvReac Type Severity Reaction Status Date / Time No Known Allergies Allergy Verified 05/13/21 22:54 PFSH Acute PFSH: Medical History No pertinent past medical history Denies diabetes, asthma, hypertension, seizures, DVT/PE PCP: KELLY Pearl PCOS (polycystic ovarian syndrome) Diagnosed at the age of 20 with irregular cycles and hirsutism. Surgical History History of cholecystectomy 2004---laparoscopic procedure. Status post laparoscopy 2009--diagnostic laparoscopy performed by Dr. Dyre for infertility-Per patient everything was normal--no endometriosis---she did say that there was scar tissue around gallbladder surgery site. Family History Father Hypertension Thyroid cancer Grandmother Stroke paternal Heart disease maternal Grandfather Heart disease maternal Diabetes paternal Family/Other Breast cancer paternal aunt x 3, diagnosed in their 50s paternal cousin, diagnosed in her 30s Diabetes paternal aunt, paternal uncle Uterine cancer paternal cousin, diagnosed at age 37 Denies family history of Colon cancer Ovarian cancer Hyperlipidemia Thyroid condition Social History Smoking and tobacco status: never smoked Alcohol intake: never Marital status: Current occupational status: employed History of recent travel: No Vitals/I&O/Wt Last Vital Signs Temp 98.3 F 05/17/21 14:30 Pulse 80 05/17/21 16:59 Resp 20 H 05/17/21 16:59 BP 116/64 05/17/21 16:15 Pulse Ox 95 05/17/21 16:59 Weight last 48 hrs Weight 108.862 kg Physical Exam Const: COMMON NORMALS: patient oriented x3 HENMT: COMMON NORMALS: normocephalic and atraumatic HEAD & SCALP: normocephalic and atraumatic Resp: OTHER: Diminished air entry at bases Cardio: COMMON NORMALS: regular rate, regular rhythm, S1 normal heart sound present, S2 normal heart sound present, No gallops present (Cardio), No murmurs present (Cardio), No rub (Cardio) and Peripheral pulses 2+ throughout RATE: regular rate RHYTHM: regular rhythm HEART SOUNDS: S1 normal heart sound present and S2 normal heart sound present PERIPHERAL PULSES: Peripheral pulses 2+ throughout GI: COMMON NORMALS: Normal to inspection, nondistended, normoactive bowel sounds present, Soft to palpation, non-tender, No hepatosplenomegaly present and no masses AUSCULTATION: Yes normoactive bowel sounds PALPATION: Yes Soft to palpation and Yes No hepatosplenomegaly present RECTAL EXAM: deferred Extremity: COMMON NORMALS: no clubbing, cyanosis or edema and no pedal edema Neuro: COMMON NORMALS: patient oriented x3 Data : 05/17/21 14:50 05/17/21 14:50 Micro: Microbiology 05/17/21 15:00 Blood Culture - Preliminary Blood SPECIMEN COLLECTED 05/17/21 14:50 Blood Culture - Preliminary Blood SPECIMEN COLLECTED A&P Assessment and plan (1) Acute respiratory failure with hypoxemia: Acute hypoxic respiratory failure secondary to Covid pneumonia: ESR: 39 CRP: 14 D-dimer: 0.52 Ferritin : 1356 LDH : 470 Fibrinogen : Procalcitonin:0.07 IL-6 CTA chest AB.48, PCO2:33.7, PO2: 57.3, FiO2: 48 % Remdesivir 5-day course Dexamethasone 6 mg IV daily for 10 days Lovenox 40 mg subcu twice daily Tocilizumab should be kept in mind if she qualifies in future. Advair inhaler DuoNebs IS/flutter valve Supplemental oxygen Status: Acute (2) COVID-19: Status: Acute (3) PCOS (polycystic ovarian syndrome): Status: Acute Attestations Medical Necessity Statement*: Patient needs to be in the hospital for management of R/F 2/2 COVID -19.Anticipated LOS Greater then 2 midnights. Coding Level of Care Code Acute Metal Sander And Finisher for Jannet Kaplan Diagnoses Acute respiratory failure with hypoxemia J96.01 COVID-19 U07.1 PCOS (polycystic ovarian syndrome) E28.2
--- NOTE | 2021-05-17 20:22 | CTR_ITS ---
PROCEDURE INFORMATION: Exam: CTA Chest With Contrast Exam date and time: 05/17/2021 8:22 PM Age: 36 years old Clinical indication: Shortness of breath; Patient HX: Covid+ SOB; Additional info: R/O p/e TECHNIQUE: Imaging protocol: Computed tomographic angiography of the chest with contrast. 3D rendering (Not supervised by radiologist): MIP and/or 3D reconstructed images were created by the technologist. Radiation optimization: All CT scans at this facility use at least one of these dose optimization techniques: automated exposure control; mA and/or kV adjustment per patient size (includes targeted exams where dose is matched to clinical indication); or iterative reconstruction. Contrast material: OMNI 350; Contrast volume: 65 ml; Contrast route: INTRAVENOUS (IV); COMPARISON: CR XR chest 1V portable [id number] 05/17/2021 2:31 PM RADIATION DOSE METRICS: Total DLP (mGy-cm): 461.56 FINDINGS: Pulmonary arteries: Normal. No pulmonary emboli. Aorta: Unremarkable. No aortic aneurysm. No aortic dissection. Lungs: Patulous ground-glass opacities throughout both lungs. Pleural spaces: Unremarkable. No pneumothorax. No pleural effusion. Heart: Unremarkable. No cardiomegaly. No pericardial effusion. Lymph nodes: Unremarkable. No enlarged lymph nodes. Bones/joints: Unremarkable. No acute fracture. Soft tissues: Unremarkable. CT/CT angio chest PE protcl [id number] IMPRESSION: 1. Negative for pulmonary embolism. 2. Patulous ground-glass opacities throughout both lungs consistent with COVID pneumonia. Radiation Dose CTDIVOL = (mGy): DLP = 461.56 (mGy-cm)
[2021-05-17] MEDS: iohexol 350 mg/mL 100 mL Btl IV (22:10)
[2021-05-17] MEDS: enoxaparin 40 mg/0.4 mL Syringe SUBCUT (22:20)
[2021-05-17] MEDS: cefTRIAXone 1,000 MG in sodium chloride 0.9% (plus) 50 ML 100 MG IV (22:20)
[2021-05-17] MEDS: ipratropium-albuterol 3 mL Neb INHALATION (22:57)
[2021-05-17] MEDS: azithromycin 500 MG in sodium chloride 0.9% 250 ML 250 MG IV (23:07)
[2021-05-18] VITALS (16 sets, daily range): BP systolic 104–150; BP diastolic 69–91; PULSE 74–104; RESP 14–32; TEMP 36.7–36.9; O2SAT 88–98
[2021-05-18] MEDS: ipratropium-albuterol 3 mL Neb INHALATION ×4 (03:55→20:13)
[2021-05-18 05:10] LABS: Basophils % 0.2 %; Nucleated Red Blood Cells % 0 %
[2021-05-18 05:12] LABS: INR 0.99 (0.8-1.2)
[2021-05-18 05:21] LABS: Lymphocytes # 0.9 10^3/uL (0.8-4.8); Lymphocytes % 15.9 %; Mean Corpuscular HGB Conc 31.7 g/dL (30.0-36.0); Mean Corpuscular Volume 91.5 fL (81-99); Mean Platelet Volume 10.6 fL (7.4-10.4); Monocytes # 0.6 10^3/uL (0.2-0.9); Monocytes % 10.2 %; Neutrophils % 72.5 %; Platelet Count 198 10^3/cmm (130-400); Red Blood Count 4.48 10^6/uL (4.1-5.3); Red Cell Distribution Width 13.3 % (12.1-15.1); White Blood Count 5.7 10^3/uL (4.0-10.0)
[2021-05-18 05:32] LABS: Alanine Aminotransferase 155 U/L (0-33); Albumin Level 3.5 g/dL (3.5-5.2); Alkaline Phosphatase 61 IU/L (35-105); Anion Gap 14.5 (5-19); Aspartate Amino Transferase 70 U/L (0-32); Blood Urea Nitrogen 12 mg/dL (6-20); Calcium 7.9 mg/dL (8.5-10.5); Carbon Dioxide 25 mmol/L (22-29); Chloride 104 mmol/L (98-107); Globulin 2.4 g/dL (1.3-4.6); Glomerular Filtration Rate 181.6 mL/min (90-130); Glucose 124 mg/dL (65-115); Magnesium 2.3 mg/dL (1.7-2.3); Osmolality Calculated 291 mOsm/kg (285-295); Potassium 3.5 mmol/L (3.5-5.1); Sodium 140 mmol/L (136-145); Total Bilirubin 0.7 mg/dL (0.15-1.2); Total Protein 5.9 g/dL (6.6-8.7)
[2021-05-18 05:37] LABS: Procalcitonin 0.05 ng/mL (0-0.5)
[2021-05-18] MEDS: enoxaparin 40 mg/0.4 mL Syringe SUBCUT ×2 (05:50→17:32)
[2021-05-18 06:04] LABS: Slide Review Slide Review Perform
[2021-05-18] MEDS: ascorbic acid 500 mg Tablet 1000 MG PO ×2 (09:08→17:29)
[2021-05-18] MEDS: zinc gluconate 50 mg Tablet PO (09:09)
[2021-05-18] MEDS: cholecalciferol (vitamin D3) 1,000 unit Tablet 2000 UNIT PO (09:09)
--- NOTE | 2021-05-18 09:46 | PC.CHAP ---
Pastoral Care Encounter/Spiritual Assessment Type of Contact [] Declined picker tender helper visit [] Patient/Family/Request visit [] Outpatient visit [] Follow-up visit [] Physician referral [] Code/Alert [x] Routine visit [] Staff referral [] Actively dying [] Patient sleeping [] Family support [] [] Out of room [] Palliative care [] [] Receiving care in room [] Pre-surgical visit [] Trauma [] Long length of stay [] ICU visit [x] Other: covid Relational/Emotional Strength [] Patient feels connected with others/family/visitors/staff [] Distress [] Loneliness/isolation [] Abandonment Spirituality of Patient [] Person of [place] [] Attends Oriental Orthodox of their [place] [] Believes in Prayer [] Reads Bible or Restoration materials [] There are Spiritual issues to be addressed Aircraft Ordnance Technician Interventions [x] Prayer [] Active listening [] Non-anxious presence [] Spiritual/emotional support [] Crisis/trauma care [] Spiritual counseling [] Bereavement support [] Provided bereavement packet [] Provided Bible/devotional materials [] Provided toy/stuffed animal, coloring book to patient or family member [] Provided Communion [] Anointing/[place] [] Salvation [x] Completed spiritual assessment [] Other: Impact on Illness or Injury [] Angry [] Fearful [] Anxious [] Often cries [] Exhaustion [] Unable to work [] Unable to attend amish [] Unable to walk/stand [] Unable to read [] Unable to drive [] Unable to eat/drink [] Unable to sleep [] Unable to be with family [] Patient intubated [] Other: Summary Time spent with patient
--- NOTE | 2021-05-18 13:09 | PM.PN ---
Subjective Subjective: Interval history: Patient was seen and examined in the Covid unit. Patient is on 45 L 75% heated high flow, not complaining of active diarrhea, chest pain, she complained of nasal congestion otherwise no overnight events CTA unremarkable Afebrile Vitals/I&O/Wt Last Vital Signs Temp 98.3 F 05/18/21 12:00 Pulse 89 05/18/21 12:00 Resp 14 05/18/21 12:00 BP 116/91 05/18/21 12:00 Pulse Ox 98 05/18/21 12:00 05/17/21 05/18/21 05/18/21 22:59 06:59 14:59 Intake Total 1100 / 1100 300 / 1400 1000 / 1000 Balance 1100 / 1100 300 / 1400 1000 / 1000 Weight last 48 hrs Weight 124.965 kg Weight 108.862 kg Weight 108.862 kg Physical Exam Narrative: EXAM NARRATIVE: Patient was sitting in her bed was saturating 90 to 92% on heated high flow No active chest pain S1, S2 Morbidly obese Soft abdomen EOMI, PERRLA No neurological deficit No joint swelling Nasal congestion, nasal tone Data : 05/18/21 04:10 05/18/21 04:10 Micro: Microbiology 05/17/21 15:00 Blood Culture - Preliminary Blood SPECIMEN COLLECTED 05/17/21 14:50 Blood Culture - Preliminary Blood SPECIMEN COLLECTED A&P Assessment and plan (1) COVID-19: Status: Acute (2) Acute respiratory failure with hypoxemia: Status: Acute Additional A&P Information Acute hypoxic respiratory failure secondary to COVID-19 pneumonia He on 45 L 75% heated high flow Trend inflammatory markers every 48 hours Continue Decadron and remdesivir Would hold off on interleukin-6 number dosage for now Continue DuoNeb and pulmonary toilet Encourag proning incentive spirometry CTA rule out PE Patient is stating that she has history of syncopal events Last time when cardiac stress test was done her heart rate increased with drop in blood pressure, cause has not been identified Will request limited echo Cardiac diet VT prophylaxis Lovenox Full code Attestations Medical Necessity Statement*: Continue medical management for hypoxia related to COVID-19 Time Spent in Patient Care: 16 - 35 minutes Coding Level of Care Code Acute Production Drilling Machine Operator for [facility] Diagnoses COVID-19 U07.1 Acute respiratory failure with hypoxemia J96.01
[2021-05-18 14:06] LABS: Coronavirus Test Green County Detected
[2021-05-18] MEDS: remdesivir 100 MG in sodium chloride 0.9% (100 ml) 100 ML IV (17:31)
[2021-05-18] MEDS: dexamethasone 4 mg/mL INJ 6 MG IVP (17:31)
--- NOTE | 2021-05-18 17:44 | PC.RESP ---
RT Shift Note Frequent safety and respiratory rounds continue. Orders completed as indicated. Patient monitored pre and post treatments throughout shift. Patient [Did tolerate treatments appropriately. Condition Improved. Patient and/or compliance representative educated on respiratory treatment and medications. Patient and/or compliance representative asked questions and verbalized understanding. Will continue to monitor patient progress.
[2021-05-19] VITALS (15 sets, daily range): BP systolic 113–165; BP diastolic 68–97; PULSE 61–99; RESP 16–24; TEMP 36.6–36.8; O2SAT 91–98; BMI 43.1
--- NOTE | 2021-05-19 05:00 | USCV_ITS ---
Amalia Bates Age: 36 Gender: F : 1985 Exam Date: 05/19/2021 06:41 Ordering Phys: Tru Soto MD Technologist: Tamera Watson Exam Location: [facility] [place] Indication: SYNCOPE BP: 113 / 68 HR: 63 Rhythm: Sinus Technical Quality: Technically difficult study MEASUREMENTS (Male / Female) Normal Values 2D ECHO LV Diastolic Diameter PLAX 3.1 cm 4.2 - 5.9 / 3.9 - 5.3 cm LV Systolic Diameter PLAX 2.0 cm IVS Diastolic Thickness 1.4 cm 0.6 - 1.0 / 0.6 - 0.9 cm IVS Systolic Thickness 1.7 cm LVPW Diastolic Thickness 1.1 cm 0.6 - 1.0 / 0.6 - 0.9 cm LVPW Systolic Thickness 1.1 cm RV Chamber Size 3.2 cm LVOT Diameter 2.0 cm LV Ejection Fraction 2D Teich 68.1 % LV Ejection Fraction MOD 2C 66.8 % LV Ejection Fraction 2C AL 68.2 % LA Diameter 3.5 cm LA Width 2.4 cm LA Height 4.9 cm RA Width 3.2 cm RA Height 4.9 cm Aorta at Sinotubular Diameter 2.9 cm FINDINGS Left Ventricle Normal left ventricular cavity size and systolic function. Upper normal left ventricle wall thickness. Left ventricular ejection fraction is estimated at 65 %. No regional wall motion abnormalities. Right Ventricle Normal right ventricular size and systolic function. Right Atrium Normal right atrial size. Left Atrium Normal left atrial size. Mitral Valve Mildly thickened mitral valve. Aortic Valve Probably trileaflet aortic valve. Tricuspid Valve Structurally normal tricuspid valve. Pulmonic Valve Structurally normal pulmonic valve. Pericardium No pericardial effusion. Aorta Normal size aortic root and proximal ascending aorta. CONCLUSIONS 1. This is a limited 2D study only. 2. Normal left ventricular cavity size and systolic function. Upper normal left ventricle wall thickness. Left ventricular ejection fraction is estimated at 65 %. No regional wall motion abnormalities. 3. Normal right ventricular size and systolic function. 4. No prior similar studies to compare. Maddy Castellon MD (Electronically Signed) Final Date: 19 May 2021 13:26 S
--- NOTE | 2021-05-19 05:09 | PC.RESP ---
RT Shift Note Frequent safety and respiratory rounds continue. Orders completed as indicated. Patient monitored pre and post treatments throughout shift. Patient did tolerate treatments appropriately. Condition improved. Patient educated on respiratory treatment and medications. Patient demonstrated learning. Will continue to monitor patient progress.
[2021-05-19] MEDS: enoxaparin 40 mg/0.4 mL Syringe SUBCUT ×2 (05:51→18:12)
[2021-05-19 07:14] LABS: Basophils % 0.2 %; Hematocrit 43.5 % (37.0-47.0); Hemoglobin 13.2 g/dL (11.5-15.3); Lymphocytes # 0.9 10^3/uL (0.8-4.8); Lymphocytes % 15.7 %; Mean Corpuscular HGB Conc 30.3 g/dL (30.0-36.0); Mean Corpuscular Hemoglobin 28.6 pg (28.0-34.0); Mean Corpuscular Volume 94.2 fL (81-99); Monocytes # 0.5 10^3/uL (0.2-0.9); Neutrophils # 4.38 10^3/uL (1.8-7.7); Neutrophils % 74.1 %; Nucleated Red Blood Cells % 0 %; Platelet Count 230 10^3/cmm (130-400); Red Blood Count 4.62 10^6/uL (4.1-5.3); Red Cell Distribution Width 13.8 % (12.1-15.1); White Blood Count 5.9 10^3/uL (4.0-10.0)
[2021-05-19 07:48] LABS: Alanine Aminotransferase 132 U/L (0-33); Albumin Level 3.6 g/dL (3.5-5.2); Alkaline Phosphatase 55 IU/L (35-105); Anion Gap 15.3 (5-19); Aspartate Amino Transferase 39 U/L (0-32); Blood Urea Nitrogen 8 mg/dL (6-20); C Reactive Protein 8.3 mg/L (0.0-4.9); Calcium 8.1 mg/dL (8.5-10.5); Carbon Dioxide 25 mmol/L (22-29); Chloride 105 mmol/L (98-107); Ferritin 790 ng/mL (15-150); Globulin 2.5 g/dL (1.3-4.6); Glomerular Filtration Rate 181.6 mL/min (90-130); Glucose 119 mg/dL (65-115); Osmolality Calculated 291 mOsm/kg (285-295); Potassium 4.3 mmol/L (3.5-5.1); Sodium 141 mmol/L (136-145); Total Bilirubin 0.6 mg/dL (0.15-1.2); Total Protein 6.1 g/dL (6.6-8.7)
[2021-05-19] MEDS: ascorbic acid 500 mg Tablet 1000 MG PO ×2 (08:12→17:00)
[2021-05-19] MEDS: cholecalciferol (vitamin D3) 1,000 unit Tablet 2000 UNIT PO (08:12)
[2021-05-19] MEDS: zinc gluconate 50 mg Tablet PO (08:12)
[2021-05-19] MEDS: ipratropium-albuterol 3 mL Neb INHALATION ×3 (08:29→20:17)
--- NOTE | 2021-05-19 11:05 | PM.PN ---
Subjective Subjective: Interval history: Patient was saturating well on 4 L nasal cannula this morning, she is feeling improved from yesterday able to eat however movement, energy is better Vitals/I&O/Wt Last Vital Signs Temp 98.1 F 05/19/21 08:00 Pulse 87 05/19/21 08:31 Resp 17 05/19/21 08:31 BP 154/91 05/19/21 08:00 Pulse Ox 96 05/19/21 08:31 05/18/21 05/19/21 05/19/21 22:59 06:59 14:59 Intake Total 340 / 1820 480 / 480 Output Total 500 / 500 Balance 340 / 1820 -500 / 1320 480 / 480 Weight last 48 hrs Weight 124.965 kg Weight 124.965 kg Weight 108.862 kg Weight 108.862 kg Physical Exam Narrative: EXAM NARRATIVE: Morbid obese female who was saturating well on 4 L nasal cannula Appearing well-hydrated Cushingoid appearance S1, S2 sinus rhythm No abdominal wheezing or rhonchi Lower extremity no edema gangrene or ulcer No joint swelling Data : 05/19/21 05:20 05/19/21 05:20 Micro: Microbiology 05/17/21 14:50 Blood Culture - Preliminary Blood NEGATIVE TO DATE 05/17/21 15:00 Blood Culture - Preliminary Blood NEGATIVE TO DATE A&P Assessment and plan (1) COVID-19: Status: Acute (2) Acute respiratory failure with hypoxemia: Status: Acute (3) COVID-19: Status: Acute Additional A&P Information Acute hypoxia related to COVID-19 Currently saturating well on 4 L nasal cannula, oxygen requirement weaned down from heated high flow to nasal cannula this morning Remarkable recovery Patient is endorsing feeling better, appetite is adequate, able to ambulate does not need PT evaluation Afebrile, if her oxygen requirement stays below 5 L I will discharge her home tomorrow morning Continue remdesivir and Decadron for now Will need quarantine for at least 20 days from the onset of day of symptoms Full code Cardiac diet DVT prophylaxis Lovenox Attestations Medical Necessity Statement*: Anticipating discharge tomorrow if oxygen requirement stays below 5 L Time Spent in Patient Care: less than 15 minutes Coding Level of Care Code Acute Manager Pe for [facility] Fwalejandra Diagnoses COVID-19 U07.1 Acute respiratory failure with hypoxemia J96.01 COVID-19 U07.1
[2021-05-19] MEDS: remdesivir 100 MG in sodium chloride 0.9% (100 ml) 100 ML IV (17:21)
--- NOTE | 2021-05-19 18:10 | PC.RESP ---
RT Shift Note Frequent safety and respiratory rounds continue. Orders completed as indicated. Patient monitored pre and post treatments throughout shift. Patient tolerated treatments appropriately. Condition improved greatly throughout the course of the day. Patient and/or sales representative consultant educated on respiratory treatment and medications. Patient and/or sales representative consultant verbalized understanding. Will continue to monitor patient progress.
--- NOTE | 2021-05-19 21:13 | PC.NURSE ---
ni iv established at this time. physician ok'd po med instead of iv push.
[2021-05-19] MEDS: dexamethasone 4 mg Tablet 10 MG PO (21:34)
--- NOTE | 2021-05-19 21:47 | PC.NURSE ---
Addendum entered by JUAN DAVID Crooks 05/19/21 21:48: didnt note that this is an ongoing problem and she is being treated for it by another physician. Original Note: possible exception to gu or female productive; pt reports some bleeding when she pees- a dark brown color.
[2021-05-20] VITALS (7 sets, daily range): BP systolic 111–135; BP diastolic 82–99; PULSE 77–101; RESP 18–19; TEMP 36.8–36.9; O2SAT 85–96
--- NOTE | 2021-05-20 01:34 | PC.NURSE ---
no scd pumps available.
[2021-05-20] MEDS: ipratropium-albuterol 3 mL Neb INHALATION ×2 (03:10→08:30)
--- NOTE | 2021-05-20 05:29 | PC.RESP ---
RT Shift Note Frequent safety and respiratory rounds continue. Orders completed as indicated. Patient monitored pre and post treatments throughout shift. Patient did tolerate treatments appropriately. Condition did not change. Patient and/or parts representative educated on respiratory treatment and medications. Patient and/or parts representative verbalized understanding. Will continue to monitor patient progress.
[2021-05-20 07:28] LABS: C Reactive Protein 5.4 mg/L (0.0-4.9)
[2021-05-20] MEDS: cholecalciferol (vitamin D3) 1,000 unit Tablet 2000 UNIT PO (09:01)
[2021-05-20] MEDS: zinc gluconate 50 mg Tablet PO (09:01)
[2021-05-20] MEDS: ascorbic acid 500 mg Tablet 1000 MG PO (09:01)
[2021-05-20] MEDS: enoxaparin 40 mg/0.4 mL Syringe SUBCUT (09:01)
--- NOTE | 2021-05-20 10:52 | PC.CHAP ---
Pastoral Care Encounter/Spiritual Assessment Type of Contact [] Declined oracle ebs consultant visit [] Patient/Family/Request visit [] Outpatient visit [] Follow-up visit [] Physician referral [] Code/Alert [x] Routine visit [] Staff referral [] Actively dying [] Patient sleeping [] Family support [] [] Out of room [] Palliative care [] [] Receiving care in room [] Pre-surgical visit [] Trauma [] Long length of stay [] ICU visit [x] Other: 2A Relational/Emotional Strength [] Patient feels connected with others/family/visitors/staff [] Distress [] Loneliness/isolation [] Abandonment Spirituality of Patient [] Person of [place] [] Attends Congregation of their [place] [] Believes in Prayer [] Reads Bible or Sabianism materials [] There are Spiritual issues to be addressed Crossing Tender Interventions [x] Prayer [] Active listening [] Non-anxious presence [] Spiritual/emotional support [] Crisis/trauma care [] Spiritual counseling [] Bereavement support [] Provided bereavement packet [] Provided Bible/devotional materials [] Provided toy/stuffed animal, coloring book to patient or family member [] Provided Communion [] Anointing/Warren [] Salvation [x] Completed spiritual assessment [] Other: Impact on Illness or Injury [] Angry [] Fearful [] Anxious [] Often cries [] Exhaustion [] Unable to work [] Unable to attend synagogue [] Unable to walk/stand [] Unable to read [] Unable to drive [] Unable to eat/drink [] Unable to sleep [] Unable to be with family [] Patient intubated [] Other: Summary Time spent with patient
--- NOTE | 2021-05-20 12:13 | PC.NURSE ---
Discharge Note Patient discharged to home via private vehicle accompanied by spouse. Discharge instructions reviewed with patient and/or employee's representative. Mobile pharmacy medications and/or prescriptions provided. Belongings/home medications returned.
--- NOTE | 2021-05-20 16:31 | PM.DCS ---
Discharge Providers Date of Admission: 05/17/21 16:46 Date of Discharge: May 20, 2021 Attending Provider at Admission: Luis Campbell MD Attending Provider at Discharge: Tru Soto MD Primary Care Provider: KELLY Flores Diagnoses at Discharge Discharge Diagnosis (1) COVID-19: Status: Acute (2) Acute respiratory failure with hypoxemia: Status: Acute (3) COVID-19: Status: Acute Reason for Visit Reason for Visit: SOB; COVID + Hospital Course Hospital Course HPI by Dr. Campbell Amalia Bates is a 36 year old female with no significant past medical history came in with chief complaint of worsening shortness of breath, predominantly with minimal exertion, she was diagnosed with Covid last Tuesday, and was initially sent home on 2 L home oxygen from the ER, but since discharge her shortness of breath has worsened, she is also complaining of chills since the diagnosis. Upon arrival in the ER she was worked up for above mentioned complaint: Imaging studies: X-ray chest: Worsening bilateral lung field infiltrates, no pneumothorax, no pleural effusion. CTA chest pending Hospital course Patient was admitted for management of hypoxic respiratory failure related to COVID-19, CTA chest ruled out PE, initially she required heated high flow 45 L 75% however in next 24 hours she was transitioned down to 3 to 4 L of nasal cannula oxygen supplementation. At the time of discharge she was only requiring 1 to 2 L on ambulation. Her mood energy and appetite was back to baseline. Patient felt energetic to go home. She will not be discharged on any steroid taper or any antibiotics. She is willing to get Covid vaccine after 90 days of her direction, onset of symptoms was about 11 days ago. She will be discharged with albuterol inhaler for as needed usage. Physical Exam Narrative: EXAM NARRATIVE: Morbid obese female who was saturating well on 2 L nasal cannula Appearing well-hydrated S1, S2 sinus rhythm No abdominal wheezing or rhonchi Lower extremity no edema gangrene or ulcer No joint swelling Discharge Data Data Completed and Pending: Completed Studies During Hospitalization Category Date Time Status CT angio chest PE protcl 72372 Urge nt Cat Scan 05/17/21 20:22 Completed XR chest 1V laci ble [id number] Stat Exams 05/17/21 14:50 Completed CV. echo limited [id number] Routine Ultrasound 05/19/21 05:00 Completed Pending at discharge Category Date Time Status Blood Culture Sta t Lab 05/17/21 15:00 Results Labs from last 24 hours 05/20/21 06:00 C-Reactive Protein 5.4 H Vitals: Last Vital Signs Temp 98.5 F 05/20/21 12:11 Pulse 77 05/20/21 12:11 Resp 18 05/20/21 12:11 BP 135/99 05/20/21 12:11 Pulse Ox 96 05/20/21 12:11 Discharge Plan Discharge Patient Disposition: Home Condition: Stable Prescriptions: New albuterol sulfate 90 mcg/actuation HFA aerosol inhaler 1 inh inhalation QID PRN (Reason: shortness of breath or wheezing) Qty: 6.7 RF: 0 Continued famotidine 20 mg tablet 20 mg PO BID RF: 0 Mucus Relief ER 600 mg tablet extended release 12hr 600 mg PO BID RF: 0 Discontinued dexamethasone 6 mg tablet 6 mg PO DAILY Qty: 6 RF: 0 doxycycline monohydrate 100 mg tablet 100 mg PO BID RF: 0 Discharge Orders: Discharge Order (Routine); Ordered 05/20/21 Ordered By: Tru Soto Other Ambulatory Orders: DME: Oxygen (Order) Location: None Selected Ordered By: Tru Soto Referrals: Kelly Killian FNP [Primary Care Provider] - 4-7 days (Follow up appointment with KELLY Lopez on 05-27-21 at 0900. Kelly Killian is out of the office that week. ) Discharge Diet: Cardiac Discharge Activity: Increase activity as tolerated Patient Instructions: Viral Pneumonia (DC), Hypoxia (GEN), Opioid Safety Activity Restrictions/Additional Instructions: Increase activity as tolerated. Use oxygen as directed. Discharge Attestations Time Spent in Discharge Care*: less than 30 min Quality Metrics Clinical Quality Measures During this hospital stay, did patient experience: None Coding Level of Care Code Acute Chg FW DC note Diagnoses COVID-19 U07.1 Acute respiratory failure with hypoxemia J96.01 COVID-19 U07.1
--- NOTE | 2021-05-25 13:36 | PC.SOCIAL ---
hospital follow up call made. patient is no longer requiring oxygen. reports she is feeling much better. picked up albuterol rx from pharmacy. has follow up appointment with Surya Iverson, 05-27, Kelly Killian is out of the office.
== END 2021-05-20 12:12 | disposition home or self-care (01) | DRG 177 ==
LOC: ER 15:39 → MS 2A 18:38
PROVIDERS: Admitting Provider Internal Medicine; Emergency Provider Emergency Medicine; PCP Nurse Practitioner Family; Visit Provider Internal Medicine
DX: U07.1 COVID-19 (principal); J96.01 Acute respiratory failure with hypoxia; Z68.41 Body mass index [BMI] 40.0-44.9, adult; E66.01 Morbid (severe) obesity due to excess calories; E28.2 Polycystic ovarian syndrome; Z90.49 Acquired absence of other specified parts of digestive tract; Z80.3 Family history of malignant neoplasm of breast; Z83.3 Family history of diabetes mellitus; Z82.3 Family history of stroke; Z99.81 Dependence on supplemental oxygen; Z86.79 Personal history of other diseases of the circulatory system; Z80.8 Family history of malignant neoplasm of other organs or systems; Z80.49 Family history of malignant neoplasm of other genital organs
CPT/HCPCS: 36415; 36600; 71045; 71275; 80053; 82728; 82803; 83605; 83615; 83735; 83880; 84145; 84484; 85025; 85610; 85651; 86140; 87040; 87426; 87635; 93308; 94640; 96365; 96366; 96367; 96372; 99285; J0456; J0696; J1100; J1650; J7050; J8540; Q9967

== ENCOUNTER → 2021-10-26 12:50 | Outpatient (BNVA) | payer BC, SELFPAY | PROVIDERS: PCP Nurse Practitioner Family; Visit Provider Obstetrics & Gynecology | DX: N91.2 Amenorrhea, unspecified (principal); N88.8 Other specified noninflammatory disorders of cervix uteri; R10.2 Pelvic and perineal pain | CPT/HCPCS: 76830 ==

== ENCOUNTER → 2021-11-03 13:41 | Outpatient (BNVA) | payer BC, SELFPAY | PROVIDERS: PCP Nurse Practitioner Family; Visit Provider Obstetrics & Gynecology | DX: N91.2 Amenorrhea, unspecified (principal) | CPT/HCPCS: 84144; 84146; 84403; 84443; 85025 ==

== ENCOUNTER → 2021-11-20 08:40 | Outpatient (BNVA) | payer BC, SELFPAY | PROVIDERS: PCP Nurse Practitioner Family; Visit Provider Obstetrics & Gynecology | DX: N93.9 Abnormal uterine and vaginal bleeding, unspecified (principal) | CPT/HCPCS: 87635 ==

== ENCOUNTER 2021-11-26 07:16 | Day surgery (SDC) | payer BC, SELFPAY ==
[2021-11-25 13:30] VITALS: BMI 42.3
[2021-11-26] VITALS (9 sets, daily range): BP systolic 106–146; BP diastolic 66–109; PULSE 68–88; RESP 16–18; TEMP 36–36.8; O2SAT 94–98
--- NOTE | 2021-11-26 08:01 | P.ANESASSM_ITS ---
Pre-Anesthetic Assessment Height/Weight: Height 1.7 m Weight 122.47 kg Temp Pulse Resp BP Pulse Ox 97.9 F 88 18 146/109 98 11/26/21 07:30 11/26/21 07:30 11/26/21 07:30 11/26/21 07:30 11/26/21 07:30 Preop Diagnosis: AUB Operation Date: 11/26/21 08:35 Proposed Procedures p Hysteroscopy w/ Myosure 23653/12944/n93.9(Not Applicable) - Lesley Mercado MD s Dilation And Curettage (D&C)(Not Applicable) - Lesley Mercado MD Familial anesthetic complications: None Was Beta Felisa taken within 24 hours: N/A Was Clonidine taken within 24 hours: N/A Last intake: Intake Last Liquid Date 11/25/21 Last Liquid Time 20:00 Last Solid Date 11/25/21 Last Solid Time 20:00 Social No alcohol and No tobacco Exam alert, oriented x 3, clear to auscultation bilaterally and regular rate & rhythm Airway Submandibular: within normal limits Cervical ROM: within normal limits Mallampati: Class II Dentition: full History/ROS No significant history except as noted Metabolic Morbid Obesity Anesthetic Plan ASA status: 2 Anesthesia: General Risk of > 500 ml blood loss (7ml/kg in children): No Medications/Allergies Home Medications Medication Instructions Recorded Confirmed Last Taken Type No Known Home Medications 11/03/21 11/25/21 Unknown History Allergies Allergy/AdvReac Type Severity Reaction Status Date / Time No Known Allergies Allergy Verified 11/20/21 08:43 [facility] Anesthesia Medical History No pertinent past medical history Denies diabetes, asthma, hypertension, seizures, DVT/PE PCP: KELLY Pearl PCOS (polycystic ovarian syndrome) Diagnosed at the age of 20 with irregular cycles and hirsutism. Surgical History History of cholecystectomy 2004---laparoscopic procedure. Status post laparoscopy 2009--diagnostic laparoscopy performed by Dr. Dyer for infertility-Per patient everything was normal--no endometriosis---she did say that there was scar tissue around gallbladder surgery site. Family History Father Hypertension Thyroid cancer Grandmother Stroke paternal Heart disease maternal Grandfather Heart disease maternal Diabetes paternal Family/Other Breast cancer paternal aunt x 3, diagnosed in their 50s paternal cousin, diagnosed in her 30s Diabetes paternal aunt, paternal uncle Uterine cancer paternal cousin, diagnosed at age 37 Denies family history of Colon cancer Ovarian cancer Hyperlipidemia Thyroid condition Data Anesthesia Cardiac Studies: Echocardiogram Limited Views 05/19/21
[2021-11-26] MEDS: sodium chloride 0.9% 1,000 ML 30 ML IV (08:17)
[2021-11-26 08:37] LABS: Basophils # 0.1 10^3/uL (0.0-0.1); Basophils % 0.6 %; Eosinophils # 0.2 10^3/uL (0.0-0.8); Eosinophils % 2.1 %; Hematocrit 44.7 % (37.0-47.0); Hemoglobin 14.2 g/dL (11.5-15.3); Lymphocytes # 1.8 10^3/uL (0.8-4.8); Lymphocytes % 22.4 %; Mean Corpuscular HGB Conc 31.8 g/dL (30.0-36.0); Mean Corpuscular Hemoglobin 28.4 pg (28.0-34.0); Mean Corpuscular Volume 89.4 fl (81-99); Mean Platelet Volume 10.1 fL (7.4-10.4); Monocytes # 0.6 10^3/uL (0.2-0.9); Monocytes % 7.4 %; Neutrophils # 5.46 10^3/uL (1.8-7.7); Neutrophils % 67.1 %; Nucleated Red Blood Cells % 0 %; Platelet Count 204 10^3/cmm (130-400); Red Cell Distribution Width 12.5 % (12.1-15.1); White Blood Count 8.1 10^3/uL (4.0-10.0)
[2021-11-26 08:44] LABS: OR HCG Qualitative Urine Negative (Negative)
--- NOTE | 2021-11-26 08:53 | W.PM.OPSUD ---
Surgery/Procedure H&P Update DATE OF PROCEDURE: November 26, 2021 DATE H&P PERFORMED: 11/03/21 H&P UPDATE INFORMATION: I have reviewed H&P completed within last 30 days, I have examined patient prior to procedure, No changes to prior documentation and H&P is in [facility] EMR on date indicated PREOP DIAGNOSIS: AUB PLANNED PROCEDURE: Operation Date: 11/26/21 08:35 Proposed Procedures p Hysteroscopy w/ Myosure 37242/31365/n93.9(Not Applicable) - Lesley Mercado MD s Dilation And Curettage (D&C)(Not Applicable) - Lesley Mercado MD
[2021-11-26] MEDS: silver nitrate applicator 1 EACH TOPICAL (10:08)
--- NOTE | 2021-11-26 10:16 | P.OP_ITS ---
Operative Report Date of procedure: November 26, 2021 OPERATIVE REPORT Date of surgery: 11/26/2021 Date of dictation: 11/26/2021 Preoperative diagnosis: Abnormal uterine bleeding-suspected endometrial polyp Postoperative diagnosis/findings: Same, 8-week size midposition uterus, nabothian cyst on the cervix, normal endocervical and endometrial cavity showing a subcentimeter polyp near the fundus, bilateral ostia visualized. Procedure done: Hysteroscopy, polypectomy and D&C with MYOSURE Specimens removed/disposition of specimens: Polyp and endometrial curettings sent to pathology Surgeon: Dr. Lesley Corona surgical assistant certified: Brittney Anesthesia: General endotracheal tube anesthesia Estimated blood loss: 25 ml Intravenous fluids: 500 mL of LR Urine output: 200 mL of clear urine via red rubber catheter at the start of procedure Medications: As per anesthesia records Complications: None, patient was extubated and taken to the recovery room in a stable condition. PROCEDURE: After consent was obtained patient was taken to the operating room where she is placed under general endotracheal tube anesthesia without any difficulty. She was placed supine on the table in lithotomy position. Care was taken to ensure that her legs were well positioned to avoid pressure points. She was then prepped and draped in the usual sterile fashion. Exam under anesthesia was done at this time which showed findings noted above. A red rubber catheter was used to empty the bladder. The weighted speculum and lateral vaginal wall retractors were placed in the vagina and the cervix was visualized. Normal with nabothian cysts The cervix was dilated to a 15 Dumont dilator. The MYOSURE hysteroscope was primed according to usual procedure. This allowed placement of a MYOSURE hysteroscope into the uterine cavity without any difficulty. Once the hysteroscope was placed in the uterine cavity, the endocervical canal was visualized and appeared normal except for a subcentimeter polyp noted near the fundus. The MYOSURE light was placed into the cavity and this polyp was removed under direct visualization. Curettage of the perry of the uterus was also done with the MYOSURE without any difficulty. No active bleeding was noted. Uterine cavity was visualized and appeared normal. Bilateral ostia were visualized. endometrial curettings with polypwere sent to pathology together. All instruments were removed from the uterus. No active bleeding was noted from the cervix. Tenaculum was removed and hemostasis was achieved with silver nitrate.. Good hemostasis was achieved. All instruments were removed from the vagina. Patient was cleaned well and anesthesia was reversed without any difficulty. She was taken to the recovery in a stable condition. FOLLOW UP: Follow-up in 2 weeks and 6 weeks with surgeon MEDICATION ON DISCHARGE: Colace 100 mg by mouth every 12 hours when necessary constipation, 30 tablets, no refills Ibuprofen 800 mg by mouth every 8 hours when necessary pain, 60 tablets, no refills. Continue other home medication DISPOSITION: Home in a stable condition This documentation was created by [employer] line construction engineer software (known for inherent line construction engineer error). Every effort was made to assure accuracy of line construction engineer. Any obvious errors or omissions should be clarified with the author of the document. Pre-op diagnosis: Preop Diagnosis AUB
--- NOTE | 2021-11-26 10:31 | P.PCN_ITS ---
PACU note Narrative: VSS, Good respiratory effort, report to BLUEPRINT PROCESSOR Exam: awake
--- NOTE | 2021-11-26 10:31 | PM.PACU ---
PACU note Narrative: VSS, Good respiratory effort, report to TELEMARKETING SALES REPRESENTATIVE Exam: awake
[2021-11-26] MEDS: HYDROmorphone 1 mg/mL INJ 1 mL (10:32)
[2021-11-26] MEDS: ibuprofen 800 mg tablet PO (11:11)
== END 2021-11-26 12:00 | disposition home or self-care (01) ==
PROVIDERS: Anesthesiology; Visit Provider Obstetrics & Gynecology
PROC: 0UDB8ZZ Extraction of Endometrium, Via Natural or Artificial Opening Endoscopic (ICD-10-PCS; CPT 58558; principal; 2021-11-26 08:25)
PROC: (CPT 58120; 2021-11-26 08:25)
DX: N93.9 Abnormal uterine and vaginal bleeding, unspecified (principal); E66.01 Morbid (severe) obesity due to excess calories; Z68.41 Body mass index [BMI] 40.0-44.9, adult; Z82.49 Family history of ischemic heart disease and other diseases of the circulatory system; Z83.3 Family history of diabetes mellitus
CPT/HCPCS: 58558; 81025; 84703; 85025; 86850; 86900; 88305; J0330; J1100; J1170; J2405; J2704; J3010; J3490; J7030

== ENCOUNTER 2022-05-24 19:38 | Emergency (ER) | payer BC, SELFPAY ==
[2022-05-24 19:43] VITALS: BP 165/104; PULSE 100; RESP 16; TEMP 36.6; O2SAT 97; BMI 43.8
--- NOTE | 2022-05-24 19:49 | ECG_ITS ---
[facility] Test Date: 2022-05-24 Pat Name: Amalia Bates Department: Room: Gender: Female Returned Goods Receiving Clerk: : 1985 Requested By: Fabricio Griffin Order Number: [id number] Alan MD: Maddy Castellon M.D. Measurements Intervals Colby Rate: 93 P: 15 IL: 152 QRS: -11 QRSD: 86 T: 20 QT: 341 QTc: 425 Interpretive Statements SINUS RHYTHM POSSIBLE LEFT ATRIAL ENLARGEMENT [-0.1mV P-WAVE IN V1/V2] Compared to ECG 05/10/2021 20:00:47 No Significant change Electronically Signed On 05-25-2022 18:07:24 CDT by Maddy Castellon M.D. [id number]
== END 2022-05-24 20:00 | disposition left against medical advice (07) ==
PROVIDERS: Emergency Provider Family Medicine
DX: Z53.21 Procedure and treatment not carried out due to patient leaving prior to being seen by health care provider (principal)
CPT/HCPCS: 93005

== ENCOUNTER → 2022-06-03 13:41 | Outpatient (BNVA) | payer BC, SELFPAY | PROVIDERS: Visit Provider Nurse Practitioner Women's Health | DX: N93.9 Abnormal uterine and vaginal bleeding, unspecified (principal); N85.01 Benign endometrial hyperplasia | CPT/HCPCS: 81025; 88305 ==

== ENCOUNTER 2022-06-11 11:45 | Outpatient (CLI) | payer BC, SELFPAY ==
--- NOTE | 2022-06-11 12:00 | US_ITS ---
WS: [id number] TRANSVAGINAL PELVIC ULTRASOUND HISTORY: N85.01 - Benign endometrial hyperplasia COMPARISON: 10/26/2021 Uterus: 8.4 cm x 4.4 cm x 3.2 cm. Normal size anteverted uterus. No fibroid or mass identified. Small nabothian cysts. Endometrium: 0.6 cm. Normal size endometrium. Small cystic areas are noted along the subendometrial j unction of the lower segment. May be early changes of adenomyosis. Right ovary: 3.1 cm x 2.4 cm x 3.2 cm. Normal size ovary with small peripheral cysts. Normal vascular ity. No mass. Left ovary: 3.0 cm x 3.1 cm x 2.1 cm. Normal size ovary. Several small follicles. Largest follicle me asures 1.3 x 1.1 x 1.3 cm with slightly irregular wall suggesting pending collapse. No free fluid. US/US transvaginal [id number] IMPRESSION: 1. Normal endometrium. Previously described hyperplasia is no longer present. 2. Several small irregular shaped follicles LEFT ovary. No mass.
== END 2022-06-11 11:46 | disposition home or self-care (01) ==
LOC: RAD 11:46
PROVIDERS: Visit Provider Nurse Practitioner Women's Health
DX: N85.01 Benign endometrial hyperplasia (principal)
CPT/HCPCS: 76830

== ENCOUNTER → 2023-06-05 12:58 | Outpatient (BNVA) | payer BC, SELFPAY | PROVIDERS: Visit Provider Nurse Practitioner | DX: J06.9 Acute upper respiratory infection, unspecified (principal); J00 Acute nasopharyngitis [common cold] | CPT/HCPCS: 87426 ==

== ENCOUNTER 2024-03-12 19:13 | Emergency (ER) | payer BC, SELFPAY ==
[2024-03-12 19:15] VITALS: BP 164/104; PULSE 83; RESP 16; TEMP 36.8; O2SAT 98
--- NOTE | 2024-03-12 19:20 | XRR_ITS ---
PROCEDURE INFORMATION: Exam: XR Left Foot Exam date and time: 03/12/2024 7:51 PM Age: 39 years old Clinical indication: Injury or trauma; Other: Twisted lt ankle TECHNIQUE: Imaging protocol: Radiologic exam of the left foot. Views: 3 or more views. COMPARISON: CR (LOW EXM, ) 03/12/2024 7:49 PM FINDINGS: Bones/joints: Normal. Soft tissues: Normal. XR/XR foot LT min 3V* [id number] IMPRESSION: No acute findings.
--- NOTE | 2024-03-12 19:20 | XRR_ITS ---
PROCEDURE INFORMATION: Exam: XR Left Ankle Exam date and time: 03/12/2024 7:49 PM Age: 39 years old Clinical indication: Injury or trauma; Other: Twisted lt ankle TECHNIQUE: Imaging protocol: Radiologic exam of the left ankle. Views: 3 or more views. COMPARISON: CR (LOW EXM, ) 03/12/2024 7:47 PM FINDINGS: Bones/joints: Spiral fracture again noted at the distal fibular diaphysis above the ankle mortise. No additional fractures. Soft tissues: Normal. XR/XR ankle LT min 3V* [id number] IMPRESSION: Fracture of the distal fibula.
--- NOTE | 2024-03-12 19:26 | XRR_ITS ---
PROCEDURE INFORMATION: Exam: XR Left Tibia and Fibula Exam date and time: 03/12/2024 7:47 PM Age: 39 years old Clinical indication: Injury or trauma; Other: Twisted lt ankle; Additional info: Fall TECHNIQUE: Imaging protocol: Radiologic exam of the left tibia and fibula. Views: 2 views. COMPARISON: No relevant prior studies available. FINDINGS: Bones/joints: Nondisplaced spiral fracture at the distal fibular diaphysis. Soft tissues: Normal. XR/XR tibia fibula LT 2V [id number] IMPRESSION: Nondisplaced fracture at the distal fibula.
--- NOTE | 2024-03-12 19:27 | ED_ITS ---
HPI - Extremity Problem General: Chief complaint: Extremity Injury, Lower Stated complaint: left leg injury Time Seen by Provider: 03/12/24 19:20 Source: patient Mode of arrival: ambulatory Limitations: no limitations History of Present Illness: 31-year-old female states that she is wa lking roughly an hour ago stepped in a hole and try to catch herself with her left foot twisted her left foot felt a pop in her left ankle and his states she has been having left ankle pain since then. States pain sharp in nature rates a 5 out of 10 is much worse when she tries to bear weight she has not been able to bear weight or ambulate on that leg. Associated symptoms: Deny chest pain, fever(s) or rash Review of Systems Const: Denies: fever(s), chills, body aches or change in appetite ENMT: Denies: throat pain or dental pain Card: Denies: chest pain Resp: Denies: dyspnea GI: Denies: abdominal pain, nausea, vomiting or diarrhea Musc: Reports: extremity pain; Denies: neck pain or back pain Skin/Breast: Denies: rash Neuro: Denies: headache(s) PFSH ED PFSH: Medical History History of cardiac arrhythmia Reports history of a cardiac arrhythmia in 2017 that resolved. [facility] cleared for ocp use. Ravinder PCOS (polycystic ovarian syndrome) Diagnosed at the age of 20 with irregular cycles and hirsutism. No pertinent past medical history Denies diabetes, asthma, hypertension, seizures, DVT/PE PCP: KELLY Pearl Gross hematuria Surgical History Status post hysteroscopy 11/26/2021---> hysteroscopy, polypectomy and D[place] [facility] [place] [facility]normal [place]. -Subcentimeter polyp noted near fundus and otherwise normal uterine cavity and endocervical cavity. Pathology showed------> benign fragments of endometrial polyp with simple hyperplasia. No atypia or malignancy identified. Status post laparoscopy 2009--diagnostic laparoscopy performed by Dr. Dyer for infertility-Per patient everything was normal--no endometriosis---she did say that there was scar tissue around gallbladder surgery site. History of cholecystectomy 2004---laparoscopic procedure. Family History Father Hypertension Thyroid cancer Grandmother Stroke paternal Heart disease maternal Grandfather Heart disease maternal Diabetes paternal Family/Other Breast cancer paternal aunt x 4, diagnosed in their 50s paternal cousin, diagnosed in her 30s Diabetes paternal aunt, paternal uncle Uterine cancer paternal cousin, diagnosed at age 37 Denies family history of Colon cancer Ovarian cancer Hyperlipidemia Thyroid condition Social History Smoking and tobacco/nicotine status: never used tobacco/nicotine Substance/Drug Use: never Physical Exam Const: COMMON NORMALS: no acute distress, patient oriented x3 and healthy appearing HENMT: COMMON NORMALS: normocephalic and atraumatic HEAD & SCALP: normocephalic and atraumatic Neck/C-Spine: COMMON NORMALS: supple Chest: COMMONS NORMALS: normal inspection of the chest Resp: COMMON NORMALS: normal respiratory effort Extremity: COMMON NORMALS: full ROM NARRATIVE EXTREMITY EXAM: Some tenderness along left lateral ankle and tibia no obvious deformities Achilles tendons intact no tenderness at the knee or foot Neuro: COMMON NORMALS: patient oriented x3, moves all extremities and no focal motor deficits Psych: COMMON NORMALS: mental status grossly normal, Normal thought process present and cooperative THOUGHT PROCESS: Normal thought process present Skin: COMMON NORMALS: no rashes or lesions noted and no wounds GENERAL SKIN EXAM: no rashes or lesions noted Course Vital Signs: Vital signs: Vital Signs Temperature 98.2 F 03/12/24 19:15 Pulse Rate 83 03/12/24 19:15 Respiratory Rate 16 03/12/24 19:15 Blood Pressure 164/104 03/12/24 19:15 Pulse Oximetry 98 03/12/24 19:15 Oxygen Delivery Me thod Room Air 03/12/24 19:15 MDM - Extremity (Nontraumatic) Medical Decision Making Patient presents with a distal fibula fracture from a fall will place in a splint she is to use crutches nonweightbearing we will get her follow-up with podiatry she return if worsening no other injuries noted. Medical Records I reviewed the patient's medical records. XR interpretation done by ED provider, pending radiology final review ED provider radiology interpretation(s): X-ray tib-fib distal fibula fracture Discharge Plan Discharge Patient Disposition: Home Clinical Impression: Fracture of distal end of fibula Qualifiers: Encounter type: initial encounter Fracture type: closed Fracture morphology: unspecified fracture morphology Laterality: left Qualified Code(s): S82.832A - Other fracture of upper and lower end of left fibula, initial encounter for closed fracture Condition: Stable Prescriptions: New hydrocodone-acetaminophen 5-325 mg tablet 1 tab PO Q6H PRN (Reason: pain) Qty: 14 0RF Discharge Orders: Discharge ED (Routine); Ordered 03/12/24 Ordered By: Fabricio Griffin Referrals: Lazaro Dial DPM [Physician] - 1-3 days Discharge Diet: Advance as tolerated Discharge Activity: Limit activity as instructed and Use walker/crutches as inst ructed Patient Instructions: Ankle Fracture (ED), Opioid Safety Coding Level of Care Code ED Cracking Still Operator for Jannet Kaplan
[2024-03-12] MEDS: HYDROcodone-acetaminophen 5-325 mg Tablet 1 TAB PO (19:38)
--- NOTE | 2024-03-13 07:11 | DCPLANNER ---
Message sent to Podiatry for follow up on ankle fx.
== END 2024-03-12 20:36 | disposition home or self-care (01) ==
PROVIDERS: Emergency Provider Emergency Medicine
DX: S82.832A Other fracture of upper and lower end of left fibula, initial encounter for closed fracture (principal); X50.1XXA Overexertion from prolonged static or awkward postures, initial encounter
CPT/HCPCS: 73590; 73610; 73630; 99284; E0114

== ENCOUNTER 2024-03-15 10:17 | Day surgery (SDC) | payer BC, SELFPAY ==
[2024-03-15] VITALS (13 sets, daily range): BP systolic 98–159; BP diastolic 66–120; PULSE 63–89; RESP 13–23; TEMP 36.3–36.8; O2SAT 91–98; BMI 47.0
[2024-03-15] MEDS: sodium chloride 0.9% 1,000 ML 30 ML IV (11:37)
[2024-03-15] MEDS: midazolam 1 mg/mL INJ 2 mL 2 MG IVP (11:57)
[2024-03-15 12:00] LABS: OR HCG Qualitative Urine Negative (Negative)
[2024-03-15] MEDS: clindamycin 600 MG/50 ML PREMIX 100 MG IV (12:07)
--- NOTE | 2024-03-15 12:10 | W.PM.OPSUD ---
Surgery/Procedure H&P Update DATE OF PROCEDURE: March 15, 2024 DATE H&P PERFORMED: 03/13/24 H&P UPDATE INFORMATION: I have reviewed H&P completed within last 30 days, I have examined patient prior to procedure, No changes to prior documentation and H&P is in [facility] [place] on date indicated PREOP DIAGNOSIS: Left bimalleolar ankle fracture PLANNED PROCEDURE: Operation Date: 03/15/24 12:00 Proposed Procedures p ORIF Ankle ORIF Bimalleolar Fracture(Left) - Lazaro Dial DPM
--- NOTE | 2024-03-15 12:14 | P.ANESASSM_ITS ---
Pre-Anesthetic Assessment Height/Weight: Height 1.7 m Weight 136.078 kg Temp Pulse Resp BP Pulse Ox O2 Del Method 97.7 F 82 16 151/105 96 Room Air 03/15/24 11:00 03/15/24 11:20 03/15/24 11:20 03/15/24 11:20 03/15/24 11:20 03/15/24 11:20 Preop Diagnosis: Left bimalleolar ankle fracture Operation Date: 03/15/24 12:00 Proposed Procedures p ORIF Ankle ORIF Bimalleolar Fracture(Left) - Lazaro Dial DPM Familial anesthetic complications: None Was Beta Felisa taken within 24 hours: N/A Was Clonidine taken within 24 hours: N/A Last intake: Intake Last Liquid Date 03/14/24 Last Liquid Time 23:55 Last Solid Date 03/14/24 Last Solid Time 20:00 Social No alcohol and No tobacco Exam alert, oriented x 3, clear to auscultation bilaterally and regular rate & rhythm Airway Mallampati: Class III Dentition: full Metabolic Morbid Obesity PCOS Anesthetic Plan ASA status: 2 Anesthesia: General and Regional (specify below) Risk of > 500 ml blood loss (7ml/kg in children): No Medications/Allergies Home Medications Medication Instructions Recorded Confirmed Last Taken Type hydrocodone 10 mg-acetaminophen 1 tab PO Q6H PRN pain 7 days #28 03/15/24 Unknown Rx 325 mg tablet tabs Allergies Allergy/AdvReac Type Severity Reaction Status Date / Time amoxicillin Allergy ALGY-Rash Verified 03/13/24 13:00 nitrofurantoin Allergy ALGY-Rash Verified 03/13/24 13:00 [From Macrobid] Current Medications Generic Name Dose Route Start Last Admin Trade Name Freq PRN Reason Stop Dose Admin Sodium Chloride 1,000 mls @ 30 mls/hr 03/15/24 10:45 03/15/24 11:37 Sodium Chloride 0.9% IV 03/16/24 10:44 30 mls/hr .Q24H STALIN Administration Midazolam HCl 2 mg 03/15/24 10:42 03/15/24 11:57 Midazolam 1 Mg/Ml Inj 2 Ml IVP 2 mg Q5M PRN Administration Preop Anxiety PFSH Anesthesia Medical History History of cardiac arrhythmia Reports history of a cardiac arrhythmia in 2017 that resolved. [facility] cleared for ocp use. Ravinder PCOS (polycystic ovarian syndrome) Diagnosed at the age of 20 with irregular cycles and hirsutism. No pertinent past medical history Denies diabetes, asthma, hypertension, seizures, DVT/PE PCP: KELLY Pearl Gross hematuria Surgical History Status post hysteroscopy 11/26/2021---> hysteroscopy, polypectomy and [place] [facility] [place]. -Subcentimeter polyp noted near fundus and otherwise normal uterine cavity and endocervical cavity. Pathology showed------> benign fragments of endometrial polyp with simple hyperplasia. No atypia or malignancy identified. Status post laparoscopy 2009--diagnostic laparoscopy performed by Dr. Dyer for infertility-Per patient everything was normal--no endometriosis---she did say that there was scar tissue around gallbladder surgery site. History of cholecystectomy 2004---laparoscopic procedure. Family History Father Hypertension Thyroid cancer Grandmother Stroke paternal Heart disease maternal Grandfather Heart disease maternal Diabetes paternal Family/Other Breast cancer paternal aunt x 4, diagnosed in their 50s paternal cousin, diagnosed in her 30s Diabetes paternal aunt, paternal uncle Uterine cancer paternal cousin, diagnosed at age 37 Denies family history of Colon cancer Ovarian cancer Hyperlipidemia Thyroid disease Social History Smoking and tobacco/nicotine status: never used tobacco/nicotine Substance/Drug Use: never Data Anesthesia Cardiac Studies: Echocardiogram Limited Views 05/19/21 Cardiac Event Monitor 06/02/22
--- NOTE | 2024-03-15 12:15 | ANES.PROC ---
Anesthesia Procedures Procedure/Date: 03/15/24 Nerve Block ^: Nerve Block 1: Main Anesthesia: general anesthesia Time Out Performed: Yes Consent: requested by attending/covering physician, from patient, from other, risks and benefits reviewed and patient agrees to proceed Nerve block location: popliteal (L) Anesthesia monitors applied: pulse oximetry, EKG and BP cuff Nerve block position: supine Anesthetic Used: ropivicaine 0.5% (30 ml) and with decadron (4 mg) Ultrasound used to: recognize landmarks Nerve Stimulator Used?: No Interscalene/Femoral BLK: 4 stimuplex 21 g needle used for position and inplane approach, visualize local anesthetic spread and no vascular puncture identified Patient Tolerated Procedure: well Complications: none
[2024-03-15] MEDS: BUPivacaine 0.5% INJ 10 mL INJECTION (12:59)
--- NOTE | 2024-03-15 13:06 | XRR_ITS ---
PROCEDURE INFORMATION: Exam: XR Left Ankle Exam date and time: 03/15/2024 1:18 PM Age: 39 years old Clinical indication: Pain; Left; Prior surgery; Surgery date: Post-operative (0-2 days); Surgery type: L ankle repair; Additional info: Post op TECHNIQUE: Imaging protocol: Radiologic exam of the left ankle. Views: 3 or more views. COMPARISON: CR (LOW EXM, ) 03/12/2024 7:49 PM FINDINGS: Bones/joints: A metallic plate and screws transfix a fracture of the distal fibular diaphysis. Bony alignment is normal. Overlying skin felix are noted along with a fiberglass splint. Soft tissues: See Bones/joints finding. XR/XR ankle LT min 3V* [id number] IMPRESSION: As above
--- NOTE | 2024-03-15 13:07 | W.PM.BPON ---
Date of Procedure: 12/23/23 Surgeon: Lazaro Dial DPM Produce Department Manager(s): Vicente Procedure(s) performed: Open reduction internal fixation left bimalleolar fracture Findings of the procedure(s): No disruption of syndesmosis Estimated blood loss: 5 mL Specimen(s) removed: No specimens Post-operative diagnosis: Left bimalleolar fracture No complications with surgery or anesthesia.
--- NOTE | 2024-03-15 13:08 | P.OP_ITS ---
Operative Report Date of procedure: March 15, 2024 Pre-op diagnosis: Bimalleolar fracture of left ankle S82.842A Post-op diagnosis: Bimalleolar fracture of left ankle S82.842A Procedure done: Open reduction internal fixation left bimalleolar fracture equivalent. CPT code 91786 Implants: [place] one third tubular plate and [place] 3.5 mm locking screws, 2-0 Vicryl, 3-0 Vicryl, skin felix Specimens removed/disposition: None Pathology: None Surgeon: Lazaro Dial DPM Cloth Spreader Screen Printing: See intraoperative documentation Estimated blood loss: 5 See intraoperative documentation IV fluids: See intraoperative documentation Urine output: 0 Complications: None Findings: Bimalleolar equivalent left ankle fracture. Brief History: 39 year old female patient presenting to clinic for evaluation of left ankle injury. DOI 03/12/24. Patient stepped in a hole and try to catch herself with her left foot twisted her left foot felt a pop in her left ankle and his states she has been having left ankle pain since then. X rays done on 03/12/24-report was read as Left Nondisplaced spiral fracture at the distal fibular diaphysis. Bimalleolar equivalent left ankle fracture. Discussed conservative versus surgical management. Goals of surgery are to provide anatomic reduction and rigid internal fixation allowing early range of motion. Recommended surgical intervention as conservative care may result in higher risk of instability of the ankle and subsequent posttraumatic arthritis and need for potential surgery down the road. I reviewed at length with the patient, the risks, potential complications, benefits, alternatives, expectations, and typical outcomes associated with the surgery. The risks and potential complications were explained in detail, including but not limited to infection, wound dehiscence or soft tissue complications, bleeding and hematoma, chronic edema, neuritis or nerve damage producing numbness or chronic pain, CRPS, failure to relieve pain or worsening pain, thick / painful / unsightly scar, limited motion / stiffness, malposition, delayed union, malunion, or nonunion, fracture, reaction to implants, anesthetic complications, venous thromboembolism, and deformity recurrence. I discussed the notion of no regrets with the patient as it pertains to complications and outcomes. The patient seemed to understand the nature of the proposed care and required convalescence. They asked appropriate questions, answered to their satisfaction. They are aware no guarantees can be made as to a satisfactory outcome and they understand there may be other possible unforeseen complications or outcomes not listed here that will be treated accordingly if they arise. There were no written or implied guarantees given to the patient. They gave informed consent to proceed. Procedure: Under mild sedation patient was brought to the operating room and placed on the operating table in supine position. A timeout was performed. Anesthesia was then administered by the anesthesia service. Popliteal block to the left lower extremity performed preoperatively per anesthesia. Well-padded pneumatic tourniquet applied to the left high calf. Left lower extremity was scrubbed, prepped and draped utilizing normal aseptic technique. Left foot and ankle were exanguinated with Esmarch bandage and tourniquet inflated to 250 mmHg. Attention was directed to the left distal fibula where a linear longitudinal incision was made directly over the lateral distal fibula at the level of the fracture through skin with a #15 blade with dissection carried down through subcutaneous tissue to the layer of periosteum utilizing sharp and blunt technique. Care was taken to retract and preserve neurovascular and tendinous structures. All bleeders were ligated and cauterized as necessary. Fibular fracture consistent with Sergio Vinson C was distracted and curettaged of hematoma followed by saline flush, this was then fixated utilizing a [place] one third tubular plate with 3.5 mm locking screws. AP, oblique and lateral views showed congruent ankle mortise with fibula to length and the rotated with excellent apposition and compression at hardware site. Smooth range of motion appreciated intraoperatively without crepitus at the left ankle. Cotton hook test yielded negative findings for syndesmotic disruption. The incision was irrigated with saline solution and closed in a layered fashion with periosteum reapproximated 2-0 Vicryl, subcutaneous tissue with 3-0 Vicryl and skin with felix. Left lower extremity was immobilized with multi layer compressive posterior splint with stirrup. Tourniquet was deflated and a prompt hyperemic response is noted to the distal digits of the left foot. Patient tolerated the procedure and anesthesia well and was transferred to the PACU with vital signs stable and vascular status intact. Following a period of postoperative monitoring she will be discharged home is to be nonweightbearing to the left lower extremity and elevate left foot while resting. Was given at home care instructions, scheduled follow-up and my cell phone number to contact with any postoperative questions or concerns. Advised 81 mg aspirin to begin day after surgery to help potentially reduce the risks of deep vein thrombosis.
[2024-03-15] MEDS: fentaNYL 50 mcg/mL INJ 2mL IVP (13:47)
[2024-03-15] MEDS: ondansetron 2 mg/ML SDV 2 mL 4 MG IVP (14:46)
--- NOTE | 2024-03-15 15:05 | XR_ITS ---
WS: [id number] XR ankle LT 2V [id number] REASON FOR EXAM: ORIF ANKLE ORIF BIMALLEOLAR FRACTURE, LEFT FINDINGS: Plate and screw fixation of oblique minimally comminuted fracture of the distal fibula superior to th e syndesmosis. Fracture fragments are in proper position and alignment. Surgical appliances intact and in proper position and alignment. XR/XR ankle LT 2V [id number] IMPRESSION: Distal left fibular fracture with internal fixation. No abnormality.
--- NOTE | 2024-03-15 16:15 | ANE.PACU2 ---
Inpatient post-anesthesia follow up: Airway intact: Yes Vital signs: Temperature 97.9 F Pulse Rate 69 Respiratory Rate 16 Blood Pressure 107/68 Pulse Oximetry 98 Oxygen Delivery Me thod Room Air Oxygen Flow Rate 6 Fraction of Inspir ed Oxygen Hydration adequate: Yes Nausea and vomiting: No Pain level: 1 Mental status: Baseline
--- NOTE | 2024-03-15 16:27 | SUR.PHASEII ---
15:00 awaiting HOME med equipment to deliver wheelchair. 15:45 HOME diesel truck technician at bedside to instruct pt.
--- NOTE | 2024-03-15 16:30 | SUR.PHASEII ---
16:15 good sensation ROM and cap refill of toes on left foot.
== END 2024-03-15 16:15 | disposition home or self-care (01) ==
PROVIDERS: Anesthesiology; Visit Provider Podiatrist Foot & Ankle Surgery
PROC: (CPT 27814; principal; 2024-03-15 12:00)
DX: S82.842A Displaced bimalleolar fracture of left lower leg, initial encounter for closed fracture (principal); X50.1XXA Overexertion from prolonged static or awkward postures, initial encounter; E66.01 Morbid (severe) obesity due to excess calories; Z68.42 Body mass index [BMI] 45.0-49.9, adult; E28.2 Polycystic ovarian syndrome
CPT/HCPCS: 27814; 73600; 73610; 76000; 81025; C1713; J0131; J1100; J1170; J2250; J2405; J2704; J2795; J3010; J3490; J7030

== ENCOUNTER → 2024-03-30 09:57 | Outpatient (BNVA) | payer BC, SELFPAY | PROVIDERS: Visit Provider Podiatrist Foot & Ankle Surgery | DX: Z98.890 Other specified postprocedural states; S82.842D Displaced bimalleolar fracture of left lower leg, subsequent encounter for closed fracture with routine healing; X58.XXXD Exposure to other specified factors, subsequent encounter | CPT/HCPCS: 73610 ==

== ENCOUNTER 2024-03-30 10:29 | Outpatient (CLI) | payer BC, SELFPAY | END 2024-03-30 10:30 | disposition home or self-care (01) | LOC: SPT 10:31 | PROVIDERS: Visit Provider Podiatrist Foot & Ankle Surgery | DX: Z47.89 Encounter for other orthopedic aftercare (principal); Z87.81 Personal history of (healed) traumatic fracture | CPT/HCPCS: 97760; L4361 ==

== ENCOUNTER → 2024-04-10 14:11 | Outpatient (BNVA) | payer BC, SELFPAY | PROVIDERS: Visit Provider Podiatrist Foot & Ankle Surgery | DX: Z98.890 Other specified postprocedural states; S82.842D Displaced bimalleolar fracture of left lower leg, subsequent encounter for closed fracture with routine healing; X58.XXXD Exposure to other specified factors, subsequent encounter | CPT/HCPCS: 73610 ==

== ENCOUNTER → 2024-04-26 13:50 | Outpatient (BNVA) | payer BC, SELFPAY | PROVIDERS: Visit Provider Podiatrist Foot & Ankle Surgery | DX: Z98.890 Other specified postprocedural states (principal); S82.842D Displaced bimalleolar fracture of left lower leg, subsequent encounter for closed fracture with routine healing; X58.XXXD Exposure to other specified factors, subsequent encounter | CPT/HCPCS: 73610 ==

== ENCOUNTER → 2024-05-10 12:57 | Outpatient (BNVA) | payer BC, SELFPAY | PROVIDERS: Visit Provider Podiatrist Foot & Ankle Surgery | DX: Z98.890 Other specified postprocedural states (principal); Z87.81 Personal history of (healed) traumatic fracture | CPT/HCPCS: 73610 ==

== ENCOUNTER 2024-05-10 15:01 | Outpatient (CLI) | payer BC, SELFPAY | END 2024-05-10 15:02 | disposition home or self-care (01) | LOC: SPT 15:02 | PROVIDERS: Visit Provider Podiatrist Foot & Ankle Surgery | DX: Z47.89 Encounter for other orthopedic aftercare (principal); Z98.890 Other specified postprocedural states; Z87.81 Personal history of (healed) traumatic fracture | CPT/HCPCS: L1902 ==

== ENCOUNTER → 2024-06-12 15:18 | Outpatient (BNVA) | payer BC, SELFPAY | PROVIDERS: Visit Provider Podiatrist Foot & Ankle Surgery | DX: Z98.890 Other specified postprocedural states (principal); Z87.81 Personal history of (healed) traumatic fracture; M93.272 Osteochondritis dissecans, left ankle and joints of left foot | CPT/HCPCS: 73630 ==

== ENCOUNTER → 2025-02-25 10:41 | Outpatient (BNVA) | payer BC, SELFPAY | PROVIDERS: Visit Provider Nurse Practitioner | DX: J02.9 Acute pharyngitis, unspecified (principal) | CPT/HCPCS: 87880 ==

== ENCOUNTER 2025-09-28 23:33 | Emergency (ER) | payer BC, SELFPAY ==
--- OUTSIDE RECORDS SUMMARY | 2025-09-28 23:42 | XMS_ITS | Encounter Summary ---
Author Organization [facility] Address [address] [place] [address] Care Team Providers Care Residential Gas Heat Technician Name Role Phone Unavailable Primary Care Provider Unavailabl e Encounter Details Date Type Department Care Team (Latest Contact Info) Description 10/14/2005 Outpatient Historical [facility] Oral and Maxillo Surgery[address] [place] [id number] David Persaud, DDS [address] [place] [phone] JOINT PAIN-JOINT NEC (Primary Dx); TM JOINT DISORDER NOS Social History Tobacco Use Types Packs/Day Years Used Date Smoking Tobacco: Never Assessed Comments Unknown Sex and Gender Information Value Date Recorded Sex Assigned at Not on file 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
--- OUTSIDE RECORDS SUMMARY | 2025-09-28 23:42 | XMS_ITS | Clinical Summary ---
Author Organization [facility] Address [facility] [place] [address] Care Team Providers Care Tire Worker Name Role Phone Unavailable Primary Care Provider Unavailabl e Allergies No known active allergies Medications No known medications Active Problems Problem Noted Date Diagnosed Date Thoracic outlet syndrome 02/06/2014 Family History Relation Name Status Comments Father Alive Mother Alive Social History Tobacco Use Types Packs/Day Years Used Date Smoking Tobacco: Never Smokeless Tobacco: Never Alcohol Use Standard Drinks/Week Comments No 0 (1 standard drink = 0.6 oz pur e alcohol) Comments Unknown Sex and Gender Information Value Date Recorded Sex Assigned at Not on file 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 Gender Identity Not on file Sexual Orientation Not on file Last Filed Vital Signs Vital Sign Reading Time Taken Comments Blood Pressure 133/85 02/06/2014 2:46 PM CDT Pulse 90 02/06/2014 2:46 PM CDT Temperature - - Respiratory Rate - - Oxygen Saturation - - Inhaled Oxygen Concentration - - Weight 111.1 kg (245 lb) 02/06/2014 2:46 PM CDT Height 170.2 cm (5' 7 ) 02/06/2014 2:46 PM CDT Body Mass Index 38.37 02/06/2014 2:46 PM CDT Plan of Treatment Health Maintenance Due Date Last Done Comments DTAP/TDAP/TD VACCINES (1 - Tdap) 2005 HEPATITIS B VACCINES (1 of 3 - 19+ 3-dose series) 02/08 HPV/Cotest (21-29) 2007 CERVICAL CANCER SCREENING 02/27/2016 HPV/Cotest (30-65) 02/27/2016 PAP SMEAR 02/27/2016 INFLUENZA VACCINE (#1) 2025 HPV VACCINES (No Doses Required) Completed Insurance [address] [place] [address] [facility]
--- OUTSIDE RECORDS SUMMARY | 2025-09-28 23:42 | XMS_ITS | Encounter Summary ---
Author Organization [facility] Address [address] [place] [address] Care Team Providers Care Drying Oven Attendant Name Role Phone Unavailable Primary Care Provider Unavailabl e Encounter Details Date Type Department Care Team (Latest Contact Info) Description 10/17/2003 Outpatient Historical [facility] Jose Chatterjee MD [address] [place] [address] ACUTE TONSILLITIS (Primary Dx); ACUTE PHARYNGITIS Social History Tobacco Use Types Packs/Day Years Used Date Smoking Tobacco: Never Assessed Comments Unknown Sex and Gender Information Value Date Recorded Sex Assigned at Not on file 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
--- OUTSIDE RECORDS SUMMARY | 2025-09-28 23:42 | XMS_ITS | Clinical Summary ---
Author Organization [facility] Address [address] Attn: Epic Prelude ADT KELLIE ORTIZ [id number] Care Team Providers Care Surgical Corsetier Name Role Phone Unavailable Primary Care Provider Unavailabl e Allergies Active Allergy Reactions Criticality Noted Date Comments Amoxicillin Rash,Hives,Itching High 06/05/2023 Medications meloxicam (MOBIC) 15 mg tablet Take 1 Tablet (15 mg) by mouth daily. 30 Tablet 1 08/23/2023 Active Active Problems Problem Noted Date Diagnosed Date Anovulatory (dysfunctional uterine) bleeding 01/2024 Thoracic outlet syndrome 02/06/2014 Family History Medical History Relation Name Comments Breast Cancer Paternal Aunt 1 Breast Cancer Paternal Aunt 2 Breast Cancer Paternal Cousin Relation Name Status Comments Father Alive Mother Alive Paternal Aunt 1 Alive Paternal Aunt 2 Alive Paternal Cousin Alive Social History Tobacco Use Types Packs/Day Years Used Date Smoking Tobacco: Never Smokeless Tobacco: Never Alcohol Use Standard Drinks/Week Comments No 0 (1 standard drink = 0.6 oz pur e alcohol) Comments No Sex and Gender Information Value Date Recorded Sex Assigned at Not on file Legal Sex Female 2:40 AM EN[employer] PATTERN[employer] Gender Identity Not on file Sexual Orientation Not on file Last Filed Vital Signs Vital Sign Reading Time Taken Comments Blood Pressure 126/82 07/13/2024 9:29 AM CDT Pulse - - Temperature - - Respiratory Rate - - Oxygen Saturation - - Inhaled Oxygen Concentration - - Weight 128.8 kg (284 lb) 07/13/2024 9:29 AM CDT Height 170.2 cm (5' 7 ) 07/13/2024 9:29 AM CDT Body Mass Index 44.48 07/13/2024 9:29 AM CDT Plan of Treatment Health Maintenance Due Date Last Done Comments DTAP/TDAP/TD VACCINES (1 - Tdap) 2005 HEPATITIS B VACCINES (1 of 3 - 19+ 3-dose series) 02/08 INFLUENZA VACCINE (#1) 2025 PAP SMEAR 07/13/2027 07/13/2024 CERVICAL CANCER SCREENING 07/13/2029 HPV/Cotest (21-29) 07/13/2029 07/13/2024 HPV/Cotest (30-65) 07/13/2029 07/13/2024 HPV VACCINES (No Doses Required) Completed Procedures Procedure Name Priority Date/Time Associated Diagnosis Comments CERV/VAG CYTO AGE BASED SCREEN PAP Routine 07/13/2024 11:36 AM CDT Screening for malignant neoplasm of cervix from Last 3 Months or Most Recently Relevant to Health Maintenance Results * CERV/VAG CYTO AGE BASED SCREEN PAP (07/13/2024 11:36 AM CDT) COMMENT (PAP): [email or web address] Comment: This order for age-based cervical cancer and STI screening follows ACOG guidelines(PB 168, 140, CLT413). See individual assays for performing site location. CLINICAL INFORMATION [email or web address] Comment:None given LAST MENSTRUAL PERIOD [facility] Comment:NONE GIVEN PREV PAP: [facility] Comment:NONE GIVEN PREV BX: [facility] Comment:NONE GIVEN SOURCE [facility] Comment:Endocervix ADEQUACY: [email or web address] Comment: Satisfactory for evaluation. Endocervical/transformation zone component present. Age and/or menstrual status not provided PAP INTERP [email or web address] [place] Comment: Cytology Results: Negative for intraepithelial lesion or malignancy. COMMENT (PAP TEST) [facility] Comment: This Pap test has been evaluated with computer assisted technology. FRESH FOOD[employer] CAKE DECORATOR: America Novoa Comment: DARSHAN MONACO(ASCP) CT Screening Location: [place] [address] [place] [address] Jonnie Novoa Comment: EXPLANATORY NOTE: The Pap is a screening test for cervical cancer. It is not a diagnostic test and is subject to false negative and false positive results. It is most reliable when a satisfactory sample, regularly obtained, is submitted with relevant clinical findings and history, and when the Pap result is evaluated along with historic and current clinical information. HPV E6/E7 Not Detected Not Detected [facility] [place] Comment: Methodology: Professional Golf Tournament Player-Mediated Amplification This assay detects E6/E7 viral messenger RNA (mRNA) from 14 high-risk HPV types (16,18,31,33,35,39,45,51,52,56,58,59,66,68). Cervical sources are required for HPV testing. If a vaginal source from a patient who has had a total hysterectomy with removal of cervix was submitted, please contact the testing laboratory for alternative testing options. For additional information, please refer to http://education.BIO-NEMS/faq/IVU522f7 (This link if provided for information/ educational purposes only.) Test Performed at: [facility] [id number] [address] Debora Crane MD Genital SWAB OF ENDOCERVIX / Unknown 07/13/2024 11:36 AM CDT 07/16/2024 8:46 AM CDT Brenna Edwards MD PATHOLOGY/CYTOLOGY O RDERABLES Final Result [facility] [phone] [facility] [address] [place] [address] from Last 3 Months or Most Recently Relevant to Health Maintenance Insurance [address] [place] [address] [facility]
[2025-09-28 23:50] VITALS: BP 182/111; PULSE 89; RESP 18; TEMP 36.6; O2SAT 100; BMI 47.0
--- NOTE | 2025-09-29 00:01 | USR_ITS ---
PROCEDURE INFORMATION: Exam: US Duplex Right Lower Extremity Veins, Limited Exam date and time: 09/29/2025 1:15 AM Age: 40 years old Clinical indication: Pain; Leg, lower; Right; Additional info: Immobile, R calf cramping and pain TECHNIQUE: Imaging protocol: Real-time duplex ultrasound of the right extremity with 2-D gates scale, color Doppler flow and spectral waveform analysis including responses to compression and other maneuvers (when performed) with image documentation. Limited exam was focused on the right lower extremity veins. COMPARISON: US transvaginal [id number] 06/11/2022 12:02 PM FINDINGS: Right deep veins: The common femoral, femoral, proximal profunda femoral and popliteal veins are patent without thrombus. Normal Doppler waveforms. Normal compressibility and/or augmentation response. Calf veins within normal limits. Superficial veins: Greater saphenous vein at the saphenofemoral junction is patent without thrombus. Soft tissues: Unremarkable. US/[place] [id number] IMPRESSION: No evidence of deep vein thrombosis.
--- NOTE | 2025-09-29 00:01 | XRR_ITS ---
PROCEDURE INFORMATION: Exam: XR Right Knee Exam date and time: 09/29/2025 12:07 AM Age: 40 years old Clinical indication: Pain; Knee; Right; Additional info: Pain near inferior patella/fibular head TECHNIQUE: Imaging protocol: Radiologic exam of the right knee. Views: 1 or 2 views. COMPARISON: No relevant prior studies available. FINDINGS: Bones/joints: No acute fracture or dislocation. Soft tissues: Normal. XR/XR knee RT 1-2V [id number] IMPRESSION: No acute fracture or dislocation.
--- NOTE | 2025-09-29 00:03 | W.ED.EXTPRO ---
HPI - Extremity Problem General: Chief complaint: Extremity Problem,Nontraumatic Stated complaint: right knee believes pos blood clot Time Seen by Provider: 09/28/25 23:41 History of Present Illness: Patient is a 40-year-old female with a past medical history of environmental allergies, asthma who presents to the ED with right leg pain. For about the past week and a half has noted some right calf and knee swelling and throbbing, at does not recall any obvious trauma. She does endorse a long car trip about 2 weeks ago, she has had no history of DVT, she is not on hormonal contraception. No chest pain or shortness of breath. She has been taking ibuprofen at home to mild relief. No recent fevers, flulike symptoms. No prior orthopedic injuries to her right lower extremity. Associated symptoms: Deny chest pain, fever(s) or rash Related Data Previous Rx's ?Medication ?Instructions ?Recorded Sole Supports #1 ea 04/26/24 ASO to left #1 ea 05/10/24 fluticasone propionate 50 2 spray intranasal DAILY #16 grams 09/02/25 mcg/actuation nasal spray,suspension (Flonase Allergy Relief) guaifenesin 1,200 mg tablet, 1,200 mg PO BID #20 tabs 09/02/25 extended release 12 hr (Mucinex) levocetirizine 5 mg tablet (Xyzal) 5 mg PO DAILY #14 tabs 09/02/25 methocarbamol 750 mg tablet 750 mg PO TID PRN Muscle 09/29/25 spasms/cramps #20 tabs Allergies Allergy/AdvReac Type Severity Reaction Status Date / Time amoxicillin Allergy ALGY-Rash Verified 09/28/25 23:53 nitrofurantoin (From Allergy ALGY-Rash Verified 09/28/25 23:53 Macrobid) Review of Systems General: Reports: 10 or more systems reviewed and unremarkable except in HPI and below Const: Denies: fever(s) or chills Eyes: Denies: change in vision or eye discharge Card: Denies: chest pain, palpitations or swelling of feet/ankles Resp: Denies: dyspnea or productive cough GI: Denies: abdominal pain or diarrhea Musc: Reports: extremity pain and extremity swelling Skin/Breast: Denies: rash or jaundice Neuro: Denies: headache(s), numbness in extremities or weakness in extremities Haroldo/Lymph: Denies: easy bruising or easy bleeding PFSH ED PFSH: Medical History (Updated 09/29/25 @ 01:41 by Jerod Mann DO) History of cardiac arrhythmia Reports history of a cardiac arrhythmia in 2017 that resolved. HCS cleared for ocp use. Ravinder PCOS (polycystic ovarian syndrome) Diagnosed at the age of 20 with irregular cycles and hirsutism. No pertinent past medical history Denies diabetes, asthma, hypertension, seizures, DVT/PE PCP: KELLY Pearl Gross hematuria Surgical History Status post hysteroscopy 11/26/2021---> hysteroscopy, polypectomy and D&[place] [facility] [place]abnormal uterine [place]. -Subcentimeter polyp noted near fundus and otherwise normal uterine cavity and endocervical cavity. Pathology showed------> benign fragments of endometrial polyp with simple hyperplasia. No atypia or malignancy identified. Status post laparoscopy 2009--diagnostic laparoscopy performed by Dr. Dyer for infertility-Per patient everything was normal--no endometriosis---she did say that there was scar tissue around gallbladder surgery site. History of cholecystectomy 2004---laparoscopic procedure. Family History Father Hypertension Thyroid cancer Grandmother Stroke paternal Heart disease maternal Grandfather Heart disease maternal Diabetes paternal Family/Other Breast cancer paternal aunt x 4, diagnosed in their 50s paternal cousin, diagnosed in her 30s Diabetes paternal aunt, paternal uncle Uterine cancer paternal cousin, diagnosed at age 37 Denies family history of Colon cancer Ovarian cancer Hyperlipidemia Thyroid disease Social History Smoking and tobacco/nicotine status: never used tobacco/nicotine Substance/Drug Use: never Physical Exam Narrative: EXAM NARRATIVE: Well-appearing, afebrile, vital signs stable on arrival, no acute distress. Right lower extremity with soft calf, no erythema, warmth, bruising, no tenderness elicited, points to pain near her right fibular head and to the other side of her patella as well, no obvious deformity, no joint effusion, full range of motion of right knee, hip and ankle joint, 2+ DP and PT pulse, 5 out of 5 motor and sensation. Course Vital Signs: Vital signs: Vital Signs Temperature 97.9 F 09/28/25 23:50 Pulse Rate 89 09/28/25 23:50 Respiratory Rate 18 09/28/25 23:50 Blood Pressure 182/111 09/28/25 23:50 Pulse Oximetry 100 09/28/25 23:50 Oxygen Delivery Me thod Room Air 09/28/25 23:50 MDM - Extremity (Nontraumatic) Medical Decision Making -ddx: DVT, occult fracture, joint effusion, soft tissue injury - Patient with about a week and a half of right lower extremity pain and cramping, recent travel, not on contraception and no other risk factors for DVT, no history of it. Does not recall any obvious trauma but has some pain around her right fibular head region, will obtain a DVT ultrasound and the x-ray, patient declining needing any pain medication at this time. - Negative DVT ultrasound for any evidence of VTE. Knee x-ray with no obvious fracture, dislocation, bony erosive changes. Unchanged MSK exam on reevaluation, still not needing any pain medication and so we deemed that she was stable for discharge and to try treating it as a minor knee sprain, tendinitis, urged supportive care, continued pain relief, Robaxin prescribed as needed, she has a knee brace that she will use over the next few days and orthopedics clinic provided for if the pain is persistent and/or worsening over the next week for potential reevaluation and MRI if needed, discharged in stable condition with at bedside, strict return precautions given. Lab Data Radiology Impressions Knee X-Ray 09/29/25 00:01 IMPRESSION: No acute fracture or dislocation. Venous Duplex 09/29/25 00:01 IMPRESSION: No evidence of deep vein thrombosis. All radiology interpretation(s) finalized by discharge Discharge Plan Discharge Patient Disposition: Home Clinical Impression: Acute knee pain Condition: Stable Prescriptions: New methocarbamol 750 mg tablet 750 mg PO TID PRN (Reason: Muscle spasms/cramps) Qty: 20 0RF No Action (DME) ASO to left See Rx Instructions .Route .MEDSUPPLY Qty: 1 0RF Rx Instructions: As directed fluticasone propionate [Flonase Allergy Relief] 50 mcg/actuation spray,suspension 2 spray intranasal DAILY Qty: 16 0RF Rx Instructions: administer into each nostril levocetirizine [Xyzal] 5 mg tablet 5 mg PO DAILY Qty: 14 0RF guaifenesin [Mucinex] 1,200 mg tablet extended release 12hr 1,200 mg PO BID Qty: 20 0RF (DME) Sole Supports See Rx Instructions .Route .MEDSUPPLY Qty: 1 0RF Rx Instructions: As directed PRE-AUTH Discharge Orders: Discharge ED (Routine); Ordered 09/29/25 Ordered By: Jerod Mann Referrals: Barby Paredes III, MD [Staff Physician, Orthopedics] - 7-10 days Discharge Diet: Usual diet Discharge Activity: Increase activity as tolerated Patient Instructions: Opioid Safety, Pain Management, Patient Portal & Sejal Instructions Activity Restrictions/Additional Instructions: You were seen for your right calf and knee pain/cramping, your evaluated with an ultrasound and x-ray that did not show any blood clot, fracture or dislocation at this time. The most likely thought is that you have a small amount of tendinitis or possibly a small amount of damage to one of your knee ligaments causing your discomfort. For the next few days, keep the leg elevated when at rest, use the knee brace when doing a lot of walking, alternate heating pads and ice packs 20 minutes at a time every few hours. Alternate ibuprofen 40 mg and Tylenol 650 mg every 4 hours as needed, in addition, use the Robaxin, 750 mg every 8 hours as needed for cramps or muscle spasms. If this pain is persistent in about a week's time and not seemingly improving, make an appointment with the orthopedics clinic listed above for reevaluation and to see if an MRI is necessary to look at the detailed structures of your knee. Return to the ED with severe worsening of your pain, inability to feel or move your right leg, recurrent falls, severe redness or swelling at the site, any other emergent concerns. Print Language: Trinidadian Coding Level of Care Code ED Fax Machine Repairer for Jannet Kaplan
[2025-09-29 01:47] VITALS: BP 160/120; PULSE 88; O2SAT 99
== END 2025-09-29 01:48 | disposition home or self-care (01) ==
PROVIDERS: Emergency Provider Student in an Organized Health Care Education/Training Program
DX: M25.561 Pain in right knee (principal)
CPT/HCPCS: 73560; 93971; 99284